=== PATIENT | female | born 1985 | race African-American/Black ===

== ENCOUNTER 2017-03-09 04:59 | Emergency (ER) | payer MEDICAID ==
[2017-03-09] MEDS ORDERED: NAPROXEN 250 MG TABLET PO ONE (05:59)
--- NOTE | 2017-03-09 06:37 | RADIOLOGY REPORT (SQ) ---
EXAM DESCRIPTION: WRIST LEFT 3 VIEWS COMPLETED DATE/TIME: 03/09/2017 6:25 am REASON FOR STUDY: fall COMPARISON: None. NUMBER OF VIEWS: Three views. TECHNIQUE: AP, lateral, and oblique radiographic images acquired of the left wrist. LIMITATIONS: None. FINDINGS: MINERALIZATION: Normal. BONES: No acute fracture or dislocation. No worrisome bone lesions. Normal alignment. SOFT TISSUES: No soft tissue swelling. No foreign body. OTHER: Small ulnar negative variance. IMPRESSION: NEGATIVE STUDY OF THE LEFT WRIST. NO RADIOGRAPHIC EVIDENCE OF ACUTE INJURY. TECHNICAL DOCUMENTATION: JOB ID: [id number] [employer]- All Rights Reserved
--- NOTE | 2017-03-09 07:04 | ER Document Report ---
ED General - General Chief Complaint: Wrist Pain Stated Complaint: FALL/WRIST PAIN Time Seen by Provider: 03/09/17 06:27 Mode of Arrival: Ambulatory Information source: Patient Notes: 31-year-old female presents with complaints of left wrist pain after fall on outstretched hand. Patient notes it was a mechanical fall denies any other injuries TRAVEL OUTSIDE OF THE [place] IN LAST 30 DAYS: No - HPI Onset: Just prior to arrival Onset/Duration: Sudden Quality of pain: Achy Severity: Mild Pain Level: 1 Associated symptoms: Body/muscle aches Exacerbated by: Movement Relieved by: Denies Similar symptoms previously: No Recently seen / treated by doctor: No - Related Data Allergies/Adverse Reactions: No Known Allergies Allergy (Verified 02/11/16 08:42) Past Medical History - Social History Smoking Status: Never Smoker Cigarette use (# per day): No Chew tobacco use (# tins/day): No Smoking Education Provided: No Family History: Reviewed & Not Pertinent Patient has suicidal ideation: No Patient has homicidal ideation: No Renal/ Medical History: Denies: Hx Peritoneal Dialysis Psychiatric Medical History: Denies: Hx Depression Past Surgical History: Reports: Hx Orthopedic Surgery - L hip; tubal ligation - Immunizations Hx Diphtheria, Pertussis, Tetanus Vaccination: No - Unknown Review of Systems - Review of Systems Notes: REVIEW OF SYSTEMS: CONSTITUTIONAL : Denies fever, chills, or sweats. Denies recent illness. EENT: Denies eye, ear, throat, or mouth pain or symptoms. Denies nasal or sinus congestion or discharge. Denies throat, tongue, or mouth swelling or difficulty swallowing. CARDIOVASCULAR: Denies chest pain. Denies palpitations or racing or irregular heart beat. Denies ankle edema. RESPIRATORY: Denies cough, cold, or chest congestion. Denies shortness of breath, difficulty breathing, or wheezing. GASTROINTESTINAL: Denies abdominal pain or distention. Denies nausea, vomiting , or diarrhea. Denies blood in vomitus, stools, or per rectum. Denies black, tarry stools. Denies constipation. GENITOURINARY: Denies difficulty urinating, painful urination, burning, frequency, blood in urine, or discharge. FEMALE GENITOURINARY: Denies vaginal bleeding, heavy or abnormal periods, irregular periods. Denies vaginal discharge or odor. MUSCULOSKELETAL: left wrist pain SKIN: Denies rash, lesions or sores. HEMATOLOGIC : Denies easy bruising or bleeding. LYMPHATIC: Denies swollen, enlarged glands. NEUROLOGICAL: Denies confusion or altered mental status. Denies passing out or loss of consciousness. Denies dizziness or lightheadedness. Denies headache. Denies weakness or paralysis or loss of use of either side. Denies problems with gait or speech. Denies sensory loss, numbness, or tingling. Denies seizures. PSYCHIATRIC: Denies anxiety or stress. Denies depression, suicidal ideation, or homicidal ideation. ALL OTHER SYSTEMS REVIEWED AND NEGATIVE. PHYSICAL EXAMINATION: GENERAL: Well-appearing, well-nourished and in no acute distress. HEAD: Atraumatic, normocephalic. EYES: Pupils equal round extraocular movements intact, conjunctiva are normal. ENT: Nares patent NECK: Normal range of motion LUNGS: No respiratory distress Musculoskeletal: left wrist tenderness on palpation NEUROLOGICAL: Normal speech, normal gait. PSYCH: Normal mood, normal affect. SKIN: Warm, Dry, normal turgor, no rashes or lesions noted. Dictation was performed using [employer] voice recognition software Physical Exam - Vital signs Vitals: Temp Pulse Resp BP Pulse Ox 98.9 F 111 H 20 147/103 H 100 03/09/17 05:01 03/09/17 05:01 03/09/17 05:01 03/09/17 05:01 03/09/17 05:01 Course - Re-evaluation Re-evalutation: 03/09/17 07:03 31-year-old female presenting with wrist injury, x-ray was negative patient otherwise looks well will be placed on cock-up splint for comfort and given follow with her primary care physician for reevaluation in 1 week or to return immediately if there are any other concerns After performing a Medical Screening Examination, I estimate there is LOW risk for INTRACRANIAL HEMORRHAGE, UNSTABLE SPINE FRACTURE, CENTRAL CORD SYNDROME, CAUDA EQUINA, THORACIC AORTIC DISSECTION, PNEUMOTHORAX, PERFORATED BOWEL, RUPTURED ABDOMINAL AORTIC ANEURYSM, ACUTE TENDON RUPTURE, COMPARTMENT SYNDROME, or OPEN FRACTURE, thus I consider the discharge disposition reasonable. Also, there is no evidence or peritonitis, sepsis, or toxicity. I have reevaluated this patient multiple times and no significant life threatening changes are noted. The patient and I have discussed the diagnosis and risks, and we agree with discharging home to follow-up with their primary doctor with the understanding that symptoms and presentations can change. We also discussed returning to the Emergency Department immediately if new or worsening symptoms occur. We have discussed the symptoms which are most concerning (e.g., bloody stool, fever, changing or worsening pain, vomiting) that necessitate immediate return. - Vital Signs Vital signs: Temp Pulse Resp BP Pulse Ox 98.9 F 111 H 20 147/103 H 100 03/09/17 05:01 03/09/17 05:01 03/09/17 05:01 03/09/17 05:01 03/09/17 05:01 - Diagnostic Test Radiology reviewed: Image reviewed, Reports reviewed - no acute abnpormality Discharge - Discharge Clinical Impression: Contusion of bone Wrist injury Qualifiers: Encounter type: initial encounter Laterality: left Qualified Code(s): S69.92XA - Unspecified injury of left wrist, hand and finger(s), initial encounter Condition: Stable Disposition: HOME, SELF-CARE Instructions: Contusion ([facility]) Referrals: DEREK GAREVY DO [Primary Care Provider] - Follow up in 1 week
[2017-03-09 07:06] VITALS: BP 118/75
== END 2017-03-09 07:13 | disposition home or self-care (01) ==
LOC: ER 04:59
DX: S60.212A Contusion of left wrist, initial encounter (principal); M25.532 Pain in left wrist; W19.XXXA Unspecified fall, initial encounter
CPT/HCPCS: 99283; 73110; L3984; L3908

== ENCOUNTER 2019-01-24 11:12 | Emergency (ER) | payer SELFPAY ==
--- NOTE | 2019-01-24 11:30 | ER Document Report ---
ED Medical Screen (RME) - General Chief Complaint: Headache Stated Complaint: HEADACHE Time Seen by Provider: 01/24/19 11:29 Primary Care Provider: DEREK GARVEY DO [Primary Care Provider] - Follow up as needed Mode of Arrival: Ambulatory Information source: Patient Notes: 33-year-old female presented to ED for complaint of headache for about a month. Blood pressure is 167/110 and she does not take her blood pressure medicines as prescribed. She is also diabetic and states she take her insulin as prescribed. Patient is alert oriented respirations regular and unlabored. She has not been to a doctor in a long while. She states she does use cocaine. I have greeted and performed a rapid initial assessment of this patient. A comprehensive ED assessment and evaluation of the patient, analysis of test results and completion of medical decision making process will be conducted by an additional ED providers. Dictation of this chart was performed using voice recognition software; therefore, there may be some unintended grammatical errors. TRAVEL OUTSIDE OF THE [place] IN LAST 30 DAYS: No - Related Data Allergies/Adverse Reactions: No Known Allergies Allergy (Verified 01/24/19 11:13) Past Medical History Renal/ Medical History: Denies: Hx Peritoneal Dialysis Psychiatric Medical History: Denies: Hx Depression Past Surgical History: Reports: Hx Orthopedic Surgery - L hip; tubal ligation - Immunizations Hx Diphtheria, Pertussis, Tetanus Vaccination: No - Unknown Physical Exam - Vital signs Vitals: Temp Pulse Resp BP Pulse Ox 98.1 F 104 H 16 167/110 H 98 01/24/19 11:23 01/24/19 11:23 01/24/19 11:23 01/24/19 11:23 01/24/19 11:23 Course - Vital Signs Vital signs: Temp Pulse Resp BP Pulse Ox 98.1 F 104 H 16 167/110 H 98 01/24/19 11:23 01/24/19 11:23 01/24/19 11:23 01/24/19 11:23 01/24/19 11:23 Doctor's Discharge - Discharge Referrals: DEREK GARVEY DO [Primary Care Provider] - Follow up as needed
[2019-01-24 11:47] LABS: ABSOLUTE BASOPHILS # (AUTO) 0.1 10^3/uL (0.0-0.2); ABSOLUTE EOSINOPHILS # (AUTO) 0.4 10^3/uL (0.0-0.6); ABSOLUTE MONOCYTES (AUTO) 0.8 10^3/uL (0.1-1.4); BASOPHILS % (AUTO) 0.5 % (0-2); EOSINOPHILS % (AUTO) 3.7 % (0-6); HEMATOCRIT 33.7 % (36.0-47.0); HEMOGLOBIN 10.6 g/dL (12.0-15.5); LYMPHOCYTES % (AUTO) 32.3 % (13-45); MEAN CORPUSCULAR HEMOGLOBIN 21.7 pg (27.0-33.4); MEAN CORPUSCULAR HGB CONC 31.3 g/dL (32.0-36.0); MEAN CORPUSCULAR VOLUME 69 fl (80-97); MONOCYTES % (AUTO) 6.8 % (3-13); PLATELET COUNT 394 10^3/uL (150-450); RED BLOOD COUNT 4.88 10^6/uL (3.72-5.28); RED CELL DISTRIBUTION WIDTH 16.5 % (11.5-14.0); SEGMENTED NEUTROPHILS % (AUTO) 56.7 % (42-78); TOTAL CELLS COUNTED % (AUTO) 100 %; WHITE BLOOD COUNT 12.3 10^3/uL (4.0-10.5)
[2019-01-24 12:08] LABS: ALANINE AMINOTRANSFERASE 14 U/L (9-52); ALBUMIN 4.2 g/dL (3.5-5.0); ALKALINE PHOSPHATASE 118 U/L (38-126); ANION GAP 14 (5-19); ASPARTATE AMINO TRANSFERASE 12 U/L (14-36); BILIRUBIN,DIRECT 0.3 mg/dL (0.0-0.4); BILIRUBIN,TOTAL 0.3 mg/dL (0.2-1.3); BLOOD UREA NITROGEN 15 mg/dL (7-20); CALCIUM 9.6 mg/dL (8.4-10.2); CARBON DIOXIDE 27 mmol/L (22-30); CHLORIDE 96 mmol/L (98-107); POTASSIUM 4.5 mmol/L (3.6-5.0); SODIUM 136.8 mmol/L (137-145); TOTAL PROTEIN 8.7 g/dL (6.3-8.2)
[2019-01-24 12:17] LABS: GLUCOSE 405 mg/dL (75-110)
[2019-01-24 12:21] LABS: TROPONIN I < 0.012 ng/mL
[2019-01-24] MEDS ORDERED: KETOROLAC TROMETHAMINE INJ/PF 30 MG/1 ML SDV IV ONE (13:25)
[2019-01-24] MEDS ORDERED: METOCLOPRAMIDE HCL INJ/PF 10 MG/2 ML SDV IV ONE (13:25)
[2019-01-24] MEDS ORDERED: NORMAL SALINE 1000 ML 1,000 ML IV ONE (13:25)
[2019-01-24] MEDS ORDERED: DIPHENHYDRAMINE HCL 50 MG/ML VIAL IV ONE (13:25)
--- NOTE | 2019-01-24 14:19 | RADIOLOGY REPORT (SQ) ---
EXAM DESCRIPTION: CT HEAD WITHOUT COMPLETED DATE/TIME: 01/24/2019 2:07 pm REASON FOR STUDY: headace COMPARISON: 01/21/2016 TECHNIQUE: Axial images acquired through the brain without intravenous contrast. Images reviewed wi th bone, brain and subdural windows. Additional sagittal and coronal reconstructions were generated. Images stored on PACS. All CT scanners at this facility use dose modulation, iterative reconstruction, and/or weight based d osing when appropriate to reduce radiation dose to as low as reasonably achievable (ALARA). [facility]: Dose Right [facility]: CareDose [facility]: Dose Right [facility]: Teradose 4D [facility]: [employer] RADIATION DOSE: CT Rad equipment meets quality standard of care and radiation dose reduction techniq ues were employed. CTDIvol: 53.2 mGy. DLP: 1017 mGy-cm. mGy. LIMITATIONS: None. FINDINGS: VENTRICLES: Normal size and contour. CEREBRUM: No masses. No hemorrhage. No midline shift. No evidence for acute infarction. Normal gra y/white matter differentiation. No areas of low density in the white matter. CEREBELLUM: No masses. No hemorrhage. No alteration of density. No evidence for acute infarction. EXTRAAXIAL SPACES: No fluid collections. No masses. ORBITS AND GLOBE: No intra- or extraconal masses. Normal contour of globe without masses. CALVARIUM: No fracture. PARANASAL SINUSES: Mild mucosal thickening of the bilateral maxillary sinuses and ethmoid air cells. SOFT TISSUES: No mass or hematoma. OTHER: No other significant finding. IMPRESSION: 1. No acute intracranial pathology. No intracranial findings to explain headache. 2. Paranasal sinus disease. EVIDENCE OF ACUTE STROKE: NO. COMMENT: Quality ID # [id number]: Final reports with documentation of one or more dose reduction techniques (e.g., Automated exposure control, adjustment of the mA and/or kV according to patient size, use of iterative reconstruction technique) TECHNICAL DOCUMENTATION: JOB ID: [id number] [employer]- All Rights Reserved Reading location - IP/workstation name: [email or web address]
--- NOTE | 2019-01-24 16:26 | EKG REPORT ---
SEVERITY:- NORMAL ECG - SINUS RHYTHM : Confirmed by: Herve Treviño MD 24-Jan-2019 16:25:45
--- NOTE | 2019-01-24 16:45 | ER Document Report ---
ED Headache - General Chief Complaint: Headache Stated Complaint: HEADACHE Time Seen by Provider: 01/24/19 11:29 Primary Care Provider: DEREK GARVEY DO [NO LOCAL MD] - Follow up as needed Mode of Arrival: Ambulatory Notes: 33-year-old female presents to the ER complaining of a headache times a month. Patient complains about pain behind her eye states she chronically has headaches on and off she is never seen a neurologist. Denies fever chills cough or sore throat. Patient was brought in by EMS was noted to have a mildly elevated blood pressure patient does have a history of high blood sugar and high blood pressure. She denies any extremity numbness tingling weakness complains of severe pain behind her eyes not worse headache of life no thunderclap no rapid onset been continual for the last month. TRAVEL OUTSIDE OF THE [place] IN LAST 30 DAYS: No - Related Data Allergies/Adverse Reactions: No Known Allergies Allergy (Verified 01/24/19 11:13) Past Medical History - General Information source: Patient - Social History Smoking Status: Current Every Day Smoker Chew tobacco use (# tins/day): No Frequency of alcohol use: None Drug Abuse: Cocaine, Prescription drugs Family History: Reviewed & Not Pertinent Patient has suicidal ideation: No Patient has homicidal ideation: No - Past Medical History Cardiac Medical History: Reports: Hx Hypertension Endocrine Medical History: Reports: Hx Diabetes Mellitus Type 2 Renal/ Medical History: Denies: Hx Peritoneal Dialysis Psychiatric Medical History: Denies: Hx Depression Past Surgical History: Reports: Hx Orthopedic Surgery - L hip; tubal ligation - Immunizations Hx Diphtheria, Pertussis, Tetanus Vaccination: No - Unknown Review of Systems - Review of Systems Constitutional: denies: Chills, Fever Cardiovascular: denies: Chest pain Gastrointestinal: denies: Abdominal pain, Nausea, Vomiting Genitourinary: denies: Dysuria, Flank pain Neurological/Psychological: Headaches, Other - Photophobia -: Yes All other systems reviewed and negative Physical Exam - Vital signs Vitals: Temp Pulse Resp BP Pulse Ox 98.1 F 104 H 16 167/110 H 98 01/24/19 11:23 01/24/19 11:23 01/24/19 11:23 01/24/19 11:23 01/24/19 11:23 - Notes Notes: GENERAL_APPEARANCE: well_nourished, alert, cooperative, no_acute_distress, no_obvious_discomfort. VITALS: reviewed, see vital signs table. HEAD: no_swelling\tenderness on the head. EYES: PERRL, EOMI, conjunctiva_clear. NOSE: no_nasal_discharge. MOUTH: (-)decreased moisture. THROAT: no_tonsilar_inflammation, no_airway_obstruction. no_lymphadenopathy NECK: supple, no_neck_tenderness, (-)thyromegaly. BACK: no_back_tenderness. CHEST_WALL: no_chest_tenderness. LUNGS: no_wheezing, no_rales, no_rhonchi, (-)accessory muscle use, good air exchange bilateral. HEART: normal_rate, normal_rhythm, normal_S1, normal_S2, (-)S3, (-)S4, no_murmur, no_rub. ABDOMEN: normal_BS, soft, no_abd_tenderness, (-)guarding, (-)rebound, no_organomegaly, no_abd_masses. EXTREMITIES: good pulses in all_extremities, no_swelling\tenderness in the extremities, no_edema. SKIN: warm, dry, good_color, no_rash. MENTAL_STATUS: speech_clear, oriented_X_3, normal_affect, responds_app ropriately to questions. NEURO: Neg Motor or Sensory Deficits on exam, CN 2-12 intact, DTR 2+ symmetric x 4, No cerbellar signs Course - Re-evaluation Re-evalutation: 01/24/19 16:41 Patient arrives complaining of a headache she has had for a month there is no thunderclap no rapid onset not worse headache of life suspicion for subarachnoid hemorrhage is low CT scan the brain is normal. Patient is given IV fluids pain and nausea medicine the headache is improved. Will discharge patient home on Fioricet Reglan. She is mildly hypertensive initially. She is on HCTZ at home. Her blood sugar is mildly elevated she has a history of this and is on medications. She is to follow-up with her family doctor. 01/24/19 16:43 Laboratory 01/24/19 01/24/19 01/24/19 10:58 10:58 10:58 WBC 12.3 H RBC 4.88 Hgb 10.6 L Hct 33.7 L MCV 69 L MCH 21.7 L MCHC 31.3 L RDW 16.5 H Plt Count 394 Seg Neutrophils % 56.7 Lymphocytes % 32.3 Monocytes % 6.8 Eosinophils % 3.7 Basophils % 0.5 Absolute Neutrophils 7.0 Absolute Lymphocytes 4.0 Absolute Monocytes 0.8 Absolute Eosinophils 0.4 Absolute Basophils 0.1 Sodium 136.8 L Potassium 4.5 Chloride 96 L Carbon Dioxide 27 Anion Gap 14 BUN 15 Creatinine 0.63 Est GFR ( Amer) > 60 Est GFR (Non-Af Amer) > 60 Glucose 405 H* Calcium 9.6 Total Bilirubin 0.3 Direct Bilirubin 0.3 Neonat Total Bilirubin Not Reportable Neonat Direct Bilirubin Not Reportable Neonat Indirect Bili Not Reportable AST 12 L ALT 14 Alkaline Phosphatase 118 CK-MB (CK-2) Troponin I Total Protein 8.7 H Albumin 4.2 Serum HCG, Qual NEGATIVE 01/24/19 10:58 WBC RBC Hgb Hct MCV MCH MCHC RDW Plt Count Seg Neutrophils % Lymphocytes % Monocytes % Eosinophils % Basophils % Absolute Neutrophils Absolute Lymphocytes Absolute Monocytes Absolute Eosinophils Absolute Basophils Sodium Potassium Chloride Carbon Dioxide Anion Gap BUN Creatinine Est GFR ( Amer) Est GFR (Non-Af Amer) Glucose Calcium Total Bilirubin Direct Bilirubin Neonat Total Bilirubin Neonat Direct Bilirubin Neonat Indirect Bili AST ALT Alkaline Phosphatase CK-MB (CK-2) 0.30 Troponin I < 0.012 Total Protein Albumin Serum HCG, Qual Patient is not in DKA there is no anion gap acidosis. - Vital Signs Vital signs: Temp Pulse Resp BP Pulse Ox 98.1 F 104 H 16 167/110 H 98 01/24/19 11:23 01/24/19 11:23 01/24/19 11:23 01/24/19 11:23 01/24/19 11:23 - Laboratory Result Diagrams: 01/24/19 10:58 01/24/19 10:58 Laboratory results interpreted by me: 01/24/19 01/24/19 10:58 10:58 WBC 12.3 H Hgb 10.6 L Hct 33.7 L MCV 69 L MCH 21.7 L MCHC 31.3 L RDW 16.5 H Sodium 136.8 L Chloride 96 L Glucose 405 H* AST 12 L Total Protein 8.7 H - Diagnostic Test Radiology reviewed: Reports reviewed Radiology results interpreted by me: 01/24/19 16:[address] 05/17/19 13:25 IMPRESSION: 1. No acute intracranial pathology. No intracranial findings to explain headache. 2. Paranasal sinus disease. EVIDENCE OF ACUTE STROKE: NO. Discharge - Discharge Clinical Impression: Hyperglycemia Headache Qualifiers: Headache type: other headache syndrome Qualified Code(s): G44.89 - Other headache syndrome Condition: Good Disposition: HOME, SELF-CARE Instructions: Toradol Injection ([facility]), Headache ([facility]) Prescriptions: Butalb/Acetaminophen/Caffeine [Fioricet (50-325-40 mg) Tablet] 1 - 2 tab PO Q4H #20 tab Metoclopramide HCl [Reglan 10 mg Tablet] 1 - 2 tab PO ASDIR PRN #25 tablet PRN Reason: Referrals: DEREK GARVEY DO [NO LOCAL MD] - Follow up as needed
[2019-01-24 16:52] LABS: APPEARANCE,URINE CLOUDY; BILIRUBIN,URINE NEGATIVE (NEGATIVE); COLOR,URINE YELLOW; GLUCOSE, URINE >=500 mg/dL (NEGATIVE); KETONES,URINE TRACE mg/dL (NEGATIVE); LEUKOCYTE ESTERASE,URINE MODERATE (NEGATIVE); NITRITE,URINE POSITIVE (NEGATIVE); PROTEIN,URINE 100 mg/dL (NEGATIVE); UROBILINOGEN,URINE NEGATIVE mg/dL (<2.0)
[2019-01-24 16:57] VITALS: BP 136/88
[2019-01-24 16:59] LABS: URINE AMPHETAMINES SCREEN NEGATIVE; URINE BARBITURATES SCREEN NEGATIVE; URINE BENZODIAZEPINES SCREEN UNCONFIRMED POSITIVE; URINE COCAINE SCREEN UNCONFIRMED POSITIVE; URINE MARIJUANA (THC) SCREEN NEGATIVE; URINE METHADONE SCREEN NEGATIVE; URINE PHENCYCLIDINE SCREEN NEGATIVE
== END 2019-01-24 16:59 | disposition home or self-care (01) ==
LOC: ER 11:12
DX: G44.89 Other headache syndrome (principal); E11.65 Type 2 diabetes mellitus with hyperglycemia; H53.149 Visual discomfort, unspecified; F17.200 Nicotine dependence, unspecified, uncomplicated; I10 Essential (primary) hypertension; Z98.51 Tubal ligation status
CPT/HCPCS: 93005; 99284; 96361; 96374; 96375; 36415; 82553; 84703; 85025; 80053; 81001; 84484; 80307; 70450; 93010; J1200; J1885; J2765; J7030

== ENCOUNTER 2020-01-03 06:41 | Inpatient (IN) | payer MEDICAID ==
[2020-01-03] MEDS ORDERED: FENTANYL CITRATE INJ/PF 100 MCG/2 ML AMPUL IV ONE (06:58)
--- NOTE | 2020-01-03 07:04 | ER Document Report ---
ED General - General Chief Complaint: Nausea/Vomiting Stated Complaint: ABDOMINAL PAIN Time Seen by Provider: 01/03/20 06:46 TRAVEL OUTSIDE OF THE [place] IN LAST 30 DAYS: No - HPI Notes: Chief complaint: Abdominal pain, nausea and vomiting HPI: 34-year-old female with history of NIDDM and hypertension presents with 24- hour history of worsening nausea vomiting and abdominal pain. She started out with nausea and vomiting and this is grown progressively worse along with mid epigastric pain which she now describes as 8/10 intensity. Pain is constant and cramping at this time. No associated diarrhea, fever, chills, dysuria or back pain. No vaginal discharge. Last menses early October. Patient is on no contraception but says she does not believe she is . She has not taken a test. Patient notes that she was treated several years ago elsewhere for abdominal pain and told that she had "early appendicitis" but did not undergo surgery. She denies any past history of any type of surgery. - Related Data Allergies/Adverse Reactions: No Known Allergies Allergy (Verified 01/24/19 11:13) Past Medical History - General Information source: Patient, Emergency Med Personnel, [facility] Records - Social History Smoking Status: Never Smoker Frequency of alcohol use: Rare Drug Abuse: None Lives with: Family Family History: Reviewed & Not Pertinent - Past Medical History Cardiac Medical History: Reports: Hx Hypertension Endocrine Medical History: Reports: Hx Diabetes Mellitus Type 2 Renal/ Medical History: Denies: Hx Peritoneal Dialysis Psychiatric Medical History: Denies: Hx Depression Past Surgical History: Reports: Hx Orthopedic Surgery - L hip; tubal ligation - Immunizations Hx Diphtheria, Pertussis, Tetanus Vaccination: No - Unknown Review of Systems - Review of Systems Notes: Constitutional: Negative for fever. HENT: Negative for sore throat. Eyes: Negative for visual changes. Cardiovascular: Negative for chest pain. Respiratory: Negative for shortness of breath. Gastrointestinal: As per HPI. Genitourinary: As per HPI. Musculoskeletal: Negative for back pain. Skin: Negative for rash. Neurological: Negative for headaches, focal weakness or numbness. 10 point ROS negative except as marked above and in HPI. Physical Exam - Vital signs Vitals: Temp 98.1 F 01/03/20 06:41 - Notes Notes: GENERAL: Female patient appearing approximately stated age very uncomfortable writhing in pain. SKIN: Good turgor no rashes. HEAD: Normocephalic atraumatic. EYES: PERRLA. EOMI. Conjunctivae and sclerae clear. EARS: CANALS AND TMS CLEAR. NOSE: CLEAR. MOUTH: Moist mucosa. Good dentition. No stridor or edema. No drooling. NECK: Supple. No masses or thyromegaly. No adenopathy. Carotids 2+ without bruits. No JVD. BACK: Symmetrical without tenderness. CHEST: Respirations unlabored. Breath sounds clear and symmetrical. HEART: Regular rhythm. No murmur gallop or rub. ABDOMEN: Mild tenderness epigastrium and right lower quadrant. Soft without masses, organomegaly or rebound. Bowel sounds normally active. No bruits. GENITALIA: Deferred. EXTREMITIES: No edema. No calf tenderness. Cap refill less than 1.5 seconds. Dorsalis pedis and posterior tibial pulses 3+ and symmetrical. NEUROLOGICAL: GCS 15. Alert and oriented x3. Fluent speech. Cranial nerves II through XII intact. Sensorimotor and cerebellar normal. Normal tone. PSYCHIATRIC: Anxious affect. Course - Re-evaluation Re-evalutation: 01/03/20 07:58 Patient has received IV normal saline 2 L. I will give her some hydralazine for lowering of her blood pressure. She is also been given some fentanyl for pain. She got Zofran initially but this did not bring her nausea under control so I ashok whitley ordered some Reglan IV. Her sugars elevated low 400s with a normal CO2. Lipase is elevated about 1616. Patient says she has had past episodes of pancreatitis. She says she rarely consumes social alcohol. She denies any known history of gallbladder disease. LFTs are all normal. White count is normal. test is negative. CT scan is pending. 01/03/20 08:00 01/03/20 11:[address] test negative. Pain control with IV fentanyl. Still nauseated and vomiting. Blood sugars coming down with 2 L normal saline IV. Her venous pH and CO2 are normal so she is not in DKA. Blood pressure is responding to IV hydralazine. Urine drug screen positive for cocaine. Patient says that she used cocaine last "a couple days ago". She is going to be admitted to the hospitalist service by Dr. Wilcox on telemetry - Vital Signs Vital signs: Temp Pulse Resp BP Pulse Ox 98.1 F 18 173/109 H 100 01/03/20 06:42 01/03/20 09:31 01/03/20 09:31 01/03/20 09:31 - Laboratory Result Diagrams: 01/03/20 07:00 01/03/20 07:00 Laboratory results interpreted by me: 01/03/20 01/03/20 01/03/20 06:49 07:00 07:00 Hgb 11.1 L Hct 34.4 L MCV 70 L MCH 22.5 L RDW 16.7 H Sodium 133.8 L Chloride 96 L Glucose 427 H* POC Glucose 404 H* Lipase 1616.9 H Urine Protein Urine Glucose (UA) Urine Ketones Urine Blood Leukocyte Esterase Rfl 01/03/20 01/03/20 08:40 08:56 Hgb Hct MCV MCH RDW Sodium Chloride Glucose POC Glucose 379 H Lipase Urine Protein 100 H Urine Glucose (UA) >=500 H Urine Ketones 80 H Urine Blood SMALL H Leukocyte Esterase Rfl MODERATE H - Diagnostic Test Radiology reviewed: Reports reviewed - CT with IV contrast negative per radiologist. - EKG Interpretation by Me Additional EKG results interpreted by me: 01/03/20 09:42 Twelve-lead EKG from 0925 hrs. reviewed contemporaneously by me demonstrates normal sinus rhythm rate 92 with QRS axis 58 degrees and normal intervals with no acute ST/T wave changes. Critical Care Note - Critical Care Note Total time excluding time spent on procedures (mins): 35 - IV hydralazine x2 for hypertensive urgency. Discharge - Discharge Clinical Impression: Cocaine abuse, Hypertensive urgency Acute pancreatitis Qualifiers: Pancreatitis type: unspecified pancreatitis type Acute pancreatitis complication: no infection or necrosis Qualified Code(s): K85.90 - Acute pancreatitis without necrosis or infection, unspecified UTI (urinary tract infection) Qualifiers: Urinary tract infection type: site unspecified Hematuria presence: without hematuria Qualified Code(s): N39.0 - Urinary tract infection, site not specified Condition: Fair Disposition: ADMITTED INPATIENT Admitting Provider: Brenden (Hospitalist) Unit Admitted: Telemetry
[2020-01-03] MEDS ORDERED: HYDRALAZINE HCL INJ/PF 20 MG/1 ML SDV IV ONE ×2 (07:05→07:54)
[2020-01-03 07:23] LABS: ABSOLUTE BASOPHILS # (AUTO) 0.1 10^3/uL (0.0-0.2); ABSOLUTE EOSINOPHILS # (AUTO) 0.2 10^3/uL (0.0-0.6); ABSOLUTE LYMPHOCYTES (AUTO) 1.7 10^3/uL (0.5-4.7); ABSOLUTE MONOCYTES (AUTO) 0.4 10^3/uL (0.1-1.4); ABSOLUTE NEUT (AUTO) 5.4 10^3/uL (1.7-8.2); BASOPHILS % (AUTO) 0.7 % (0-2); EOSINOPHILS % (AUTO) 2.1 % (0-6); HEMATOCRIT 34.4 % (36.0-47.0); HEMOGLOBIN 11.1 g/dL (12.0-15.5); LYMPHOCYTES % (AUTO) 21.5 % (13-45); MEAN CORPUSCULAR HEMOGLOBIN 22.5 pg (27.0-33.4); MEAN CORPUSCULAR HGB CONC 32.4 g/dL (32.0-36.0); MEAN CORPUSCULAR VOLUME 70 fl (80-97); MONOCYTES % (AUTO) 5.5 % (3-13); PLATELET COUNT 371 10^3/uL (150-450); RED BLOOD COUNT 4.94 10^6/uL (3.72-5.28); RED CELL DISTRIBUTION WIDTH 16.7 % (11.5-14.0); SEGMENTED NEUTROPHILS % (AUTO) 70.2 % (42-78); TOTAL CELLS COUNTED % (AUTO) 100 %; WHITE BLOOD COUNT 7.8 10^3/uL (4.0-10.5)
[2020-01-03 07:27] LABS: ALBUMIN 3.9 g/dL (3.5-5.0); ALKALINE PHOSPHATASE 110 U/L (38-126); ANION GAP 13 (5-19); ASPARTATE AMINO TRANSFERASE 16 U/L (14-36); BILIRUBIN,TOTAL 0.4 mg/dL (0.2-1.3); BLOOD UREA NITROGEN 11 mg/dL (7-20); CALCIUM 9.4 mg/dL (8.4-10.2); CARBON DIOXIDE 25 mmol/L (22-30); CHLORIDE 96 mmol/L (98-107); POTASSIUM 4.4 mmol/L (3.6-5.0); TOTAL PROTEIN 7.8 g/dL (6.3-8.2)
[2020-01-03 07:33] LABS: ALCOHOL < 10 mg/dL (NONE DETECTED); GLUCOSE 427 mg/dL (75-110)
[2020-01-03] MEDS ORDERED: METOCLOPRAMIDE HCL INJ/PF 10 MG/2 ML SDV IV ONE (07:57)
[2020-01-03] MEDS ORDERED: PANTOPRAZOLE SODIUM 40 MG VIAL IV ONE (08:25)
[2020-01-03] MEDS: NORMAL SALINE 1000 ML 1,000 ML IV PRN ×4 (08:37→20:25)
[2020-01-03 09:38] LABS: VENOUS BLOOD BASE EXCESS 1.2 mmol/L; VENOUS BLOOD PCO2 47.9 mmHg (35-63); VENOUS BLOOD PH 7.37 (7.30-7.42)
[2020-01-03 09:55] LABS: APPEARANCE,URINE CLOUDY; BILIRUBIN,URINE NEGATIVE (NEGATIVE); COLOR,URINE YELLOW; GLUCOSE, URINE >=500 mg/dL (NEGATIVE); KETONES,URINE 80 mg/dL (NEGATIVE); PROTEIN,URINE 100 mg/dL (NEGATIVE); URINE SPECIFIC GRAVITY 1.033; UROBILINOGEN,URINE NEGATIVE mg/dL (<2.0)
[2020-01-03 10:04] LABS: URINE AMPHETAMINES SCREEN NEGATIVE; URINE BARBITURATES SCREEN NEGATIVE; URINE BENZODIAZEPINES SCREEN NEGATIVE; URINE MARIJUANA (THC) SCREEN NEGATIVE; URINE METHADONE SCREEN NEGATIVE; URINE PHENCYCLIDINE SCREEN NEGATIVE
[2020-01-03 10:05] LABS: URINE COCAINE SCREEN UNCONFIRMED POSITIVE
--- NOTE | 2020-01-03 10:48 | RADIOLOGY REPORT (SQ) ---
EXAM DESCRIPTION: CT ABD/PELVIS WITH IV ONLY IMAGES COMPLETED DATE/TIME: 01/03/2020 10:20 am REASON FOR STUDY: abd pain COMPARISON: None. TECHNIQUE: CT scan of the abdomen and pelvis performed using helical scanning technique with dynamic intravenous contrast injection. No oral contrast. Images reviewed with lung, soft tissue, and bone windows. Reconstructed coronal and sagittal MPR images reviewed. Delayed images for evaluation of the urinary system also acquired. All images stored on PACS. All CT scanners at this facility use dose modulation, iterative reconstruction, and/or weight based d osing when appropriate to reduce radiation dose to as low as reasonably achievable (ALARA). [facility]: Dose Right [facility]: CareDose [facility]: Dose Right [facility]: Teradose 4D [facility]: BFKW CONTRAST TYPE AND DOSE: 94 Omnipaque 350- low osmolar. RENAL FUNCTION: None required. The patient is less than 50 years old. RADIATION DOSE: CT Rad equipment meets quality standard of care and radiation dose reduction techniq ues were employed. CTDIvol: 9.2 - 13.1 mGy. DLP: 1205 mGy-cm.. LIMITATIONS: None. FINDINGS: LOWER CHEST: No significant findings. No nodules or infiltrates. LIVER: Normal size. No masses. No dilated ducts. SPLEEN: Normal size. No focal lesions. PANCREAS: No masses. No significant calcifications. No adjacent inflammation or peripancreatic fluid collections. Pancreatic duct not dilated. GALLBLADDER: No identified stones by CT criteria. No inflammatory changes to suggest cholecystitis. ADRENAL GLANDS: No significant masses or asymmetry. RIGHT KIDNEY AND URETER: No solid masses. No significant calcifications. No hydronephrosis or hyd roureter. LEFT KIDNEY AND URETER: No solid masses. No significant calcifications. No hydronephrosis or hydr oureter. AORTA AND VESSELS: No aneurysm. No dissection. Renal arteries, SMA, celiac without stenosis. RETROPERITONEUM: No retroperitoneal adenopathy, hemorrhage or masses. BOWEL AND PERITONEAL CAVITY: No masses or inflammatory changes. No free fluid or peritoneal masses. APPENDIX: Normal. PELVIS: No mass. No free fluid. Normal bladder. ABDOMINAL WALL: No masses. No hernias. BONES: No significant or acute findings. OTHER: No other significant finding. IMPRESSION: NO SIGNIFICANT OR ACUTE FINDING IN THE ABDOMEN OR PELVIS ON CT SCAN WITH IV CONTRAST. TECHNICAL DOCUMENTATION: JOB ID: [id number] Quality ID # [id number]: Final reports with documentation of one or more dose reduction techniques (e.g., Au tomated exposure control, adjustment of the mA and/or kV according to patient size, use of iterative reconstruction technique) 2010 [employer]- All Rights Reserved Reading location - IP/workstation name: [email or web address]
[2020-01-03] MEDS ORDERED: CEFTRIAXONE INJ 1000 MG VIAL IV ONE (11:01)
[2020-01-03] MEDS ORDERED: MAGNESIUM HYDROXIDE SUSP 30 ML UDCUP PO PRN (12:55)
[2020-01-03] MEDS ORDERED: ALBUTEROL SULFATE 0.083% NEB 2.5 MG/3 ML AMPUL NEB PRN (12:55)
[2020-01-03] MEDS ORDERED: ACETAMINOPHEN 325 MG TABLET PO PRN ×2 (12:55→13:14)
[2020-01-03] MEDS ORDERED: MAG HYDROX/AL HYDROX/SIMETH SUSP 30 ML UDCUP PO PRN (12:55)
[2020-01-03] MEDS ORDERED: DEXTROSE 40% GEL 15 GM TUBE PO PRN ×2 (13:07)
[2020-01-03] MEDS ORDERED: GLUCAGON,HUMAN RECOMB 1 MG INJ IM PRN (13:07)
[2020-01-03] MEDS ORDERED: DEXTROSE 50%-WATER 25 GM/50 ML DISP.SYRIN IV PRN ×2 (13:07)
[2020-01-03] MEDS ORDERED: MORPHINE SULFATE 10 MG/ML INJ IV PRN (13:09)
[2020-01-03] MEDS ORDERED: NICOTINE 7 MG/24 HR PATCH.TD24 TD PRN (13:11)
[2020-01-03] MEDS ORDERED: CLONIDINE 0.1 MG/24 HR PATCH.TDWK TD SCH (14:00)
--- NOTE | 2020-01-03 15:23 | PDOC H&P ---
History of Present Illness Admission Date/PCP: 01/03/20 12:57 Patient complains of: abdominal pain, n/v History of Present Illness: LESLEY POOLE is a 34 year old female with a past medical history of uncontrolled diabetes mellitus, hypertension, obesity, tobacco abuse, and substance abuse who presented to the emergency department today with a complaint of severe abdominal discomfort associated with nausea and vomiting and inability to tolerate p.o. fluids. Evaluation emergency department revealed hypertensive urgency (214/119) and otherwise stable vital signs, anemia (hemoglobin 11.1), glucose 427, and lipase 1616. Urinalysis reveals UTI,Serum EtOH is negative, cocaine positive. Abdominal CT was negative for pertinent findings. Patient was provided IV Rocephin, antiemetics, analgesics, and IV fluids. Patient is referred to the hospitalist service for admission management of the above-stated complaints findings. Past Medical History Cardiac Medical History: Reports: Hypertension Pulmonary Medical History: Reports: None EENT Medical History: Reports: None Neurological Medical History: Reports: None Endocrine Medical History: Reports: Diabetes Mellitus Type 2 Renal/ Medical History: Reports: None Malignancy Medical History: Reports: None GI Medical History: Reports: None Musculoskeltal Medical History: Reports: None Skin Medical History: Reports: None Psychiatric Medical History: Reports: Substance Abuse, Tobacco Dependency Denies: Depression Traumatic Medical History: Reports: None Hematology: Reports: None Infectious Medical History: Reports: None Past Surgical History Past Surgical History: Reports: Orthopedic Surgery - L hip; tubal ligation Social History Information Source: Patient Lives with: Family Smoking Status: Current Some Day Smoker Frequency of Alcohol Use: Social Hx Recreational Drug Use: Yes Drugs: Cocaine Hx Prescription Drug Abuse: No - Advance Directive Resuscitation Status: Full Code Family History Family History: Reviewed & Not Pertinent Parental Family History Reviewed: Yes Children Family History Reviewed: Yes Sibling(s) Family History Reviewed.: Yes Medication/Allergy Home Medications: Cephalexin Monohydrate [Keflex 500 mg Capsule] 500 mg PO BID #6 capsule 02/12/16 Insulin Glargine,Hum.rec.anlog [Lantus Solostar] 12 unit SQ QHS #1 each 02/12/16 Multivitamins W-Iron [Flintstones Chewable Multivit W/Fe Tab] 1 tab PO DAILY #30 tab.chew 02/12/16 Hydrochlorothiazide 25 mg PO QAM #30 tablet 06/24/16 Tramadol HCl 50 mg PO TID PRN #15 tablet 06/24/16 Butalb/Acetaminophen/Caffeine [Fioricet (50-325-40 mg) Tablet] 1 - 2 tab PO Q4H #20 tab 01/24/19 Metoclopramide HCl [Reglan 10 mg Tablet] 1 - 2 tab PO ASDIR PRN #25 tablet 01/24/19 Allergies/Adverse Reactions: No Known Allergies Allergy (Verified 01/24/19 11:13) Review of Systems Constitutional: ABSENT: chills, fever(s), headache(s), weight gain, weight loss Eyes: ABSENT: visual disturbances Ears: ABSENT: hearing changes Cardiovascular: ABSENT: chest pain, dyspnea on exertion, edema, orthropnea, palpitations Respiratory: ABSENT: cough, hemoptysis Gastrointestinal: PRESENT: abdominal pain, nausea, vomiting. ABSENT: constipation, diarrhea, hematemesis, hematochezia Genitourinary: ABSENT: dysuria, hematuria Musculoskeletal: ABSENT: joint swelling Integumentary: ABSENT: rash, wounds Neurological: ABSENT: abnormal gait, abnormal speech, confusion, dizziness, focal weakness, syncope Psychiatric: ABSENT: anxiety, depression, homidical ideation, suicidal ideation Endocrine: ABSENT: cold intolerance, heat intolerance, polydipsia, polyuria Hematologic/Lymphatic: ABSENT: easy bleeding, easy bruising Physical Exam Vital Signs: Temp Pulse Resp BP Pulse Ox 98.1 F 18 175/114 H 100 01/03/20 06:42 01/03/20 12:01 01/03/20 12:01 01/03/20 12:01 Intake & Output 01/02/20 01/03/20 01/04/20 06:59 06:59 06:59 Intake Total 1999 Balance 1999 Weight 88.4 kg General appearance: PRESENT: no acute distress, well-developed, well-nourished Head exam: PRESENT: atraumatic, normocephalic Eye exam: PRESENT: conjunctiva pink, EOMI, PERRLA. ABSENT: scleral icterus Ear exam: PRESENT: normal external ear exam Mouth exam: PRESENT: moist, tongue midline Respiratory exam: PRESENT: clear to auscultation lázaro, symmetrical, unlabored. ABSENT: rales, rhonchi, wheezes Cardiovascular exam: PRESENT: RRR, +S1, +S2. ABSENT: diastolic murmur, rubs, systolic murmur Pulses: PRESENT: normal dorsalis pedis pul Vascular exam: PRESENT: normal capillary refill GI/Abdominal exam: PRESENT: normal bowel sounds, soft, tenderness. ABSENT: distended, guarding, mass, organolmegaly, rebound Rectal exam: PRESENT: deferred Extremities exam: PRESENT: full ROM. ABSENT: calf tenderness, clubbing, pedal edema Neurological exam: PRESENT: alert, awake, oriented to person, oriented to place, oriented to time, oriented to situation, CN II-XII grossly intact. ABSENT: motor sensory deficit Psychiatric exam: PRESENT: appropriate affect, normal mood. ABSENT: homicidal ideation, suicidal ideation Skin exam: PRESENT: dry, intact, warm. ABSENT: cyanosis, rash Results Laboratory Results: 01/03/20 07:00 01/03/20 07:00 01/03/20 01/03/20 01/03/20 07:00 07:00 07:00 WBC 7.8 RBC 4.94 Hgb 11.1 L Hct 34.4 L MCV 70 L MCH 22.5 L MCHC 32.4 RDW 16.7 H Plt Count 371 Seg Neutrophils % 70.2 VBG pH VBG pCO2 VBG HCO3 VBG Base Excess Sodium 133.8 L Potassium 4.4 Chloride 96 L Carbon Dioxide 25 Anion Gap 13 BUN 11 Creatinine 0.70 Est GFR ( Amer) > 60 Glucose 427 H* Calcium 9.4 Total Bilirubin 0.4 AST 16 Alkaline Phosphatase 110 Total Protein 7.8 Albumin 3.9 Lipase 1616.9 H Serum HCG, Qual NEGATIVE Urine Color Urine Appearance Urine pH Ur Specific [place] Urine Protein Urine Glucose (UA) Urine Ketones Urine Blood Urine RBC (Auto) 01/03/20 01/03/20 08:40 08:55 WBC RBC Hgb Hct MCV MCH MCHC RDW Plt Count Seg Neutrophils % VBG pH 7.37 VBG pCO2 47.9 VBG HCO3 27.0 VBG Base Excess 1.2 Sodium Potassium Chloride Carbon Dioxide Anion Gap BUN Creatinine Est GFR ( Amer) Glucose Calcium Total Bilirubin AST Alkaline Phosphatase Total Protein Albumin Lipase Serum HCG, Qual Urine Color YELLOW Urine Appearance CLOUDY Urine pH 7.0 Ur Specific [place] 1.033 Urine Protein 100 H Urine Glucose (UA) >=500 H Urine Ketones 80 H Urine Blood SMALL H Urine RBC (Auto) 1 Impressions: Abdomen/Pelvis CT 01/03/20 00:00 IMPRESSION: NO SIGNIFICANT OR ACUTE FINDING IN THE ABDOMEN OR PELVIS ON CT SCAN WITH IV CONTRAST. Assessment and Plan - Diagnosis (1) Acute pancreatitis Qualifiers: Pancreatitis type: unspecified pancreatitis type Acute pancreatitis compli cation: no infection or necrosis Qualified Code(s): K85.90 - Acute pancreatitis without necrosis or infection, unspecified Is this a current diagnosis for this admission?: Yes Plan: Patient is admitted to the medical floor on continuous cardiac telemetry. She is placed in n.p.o. status. She will be provided aggressive IV fluid resuscitation. Antiemetics and analgesics as needed. Follow-up chemistry. Check lipid panel and A1c with a.m. lab work. (2) Hypertensive urgency Is this a current diagnosis for this admission?: Yes Plan: Blood pressure 214/119 upon initial evaluation the emergency department. Patient confirms that she has a history of hypertension and states that she should be on medications but cannot recall what she takes. Blood pressure at this time is likely elevated related to recent cocaine use. We will avoid beta-blockers. She is provided IV hydralazine as needed for blood pressure control. We will start low-dose clonidine patch until able to take p.o. (3) Diabetes type 2, uncontrolled Qualifiers: Glycemic state: with hyperglycemia Qualified Code(s): E11.65 - Type 2 diabetes mellitus with hyperglycemia Is this a current diagnosis for this admission?: Yes Plan: Holding oral medications while admitted. We will check A1c with a.m. lab work. Currently NPO Accu-Cheks before meals and at bedtime with Humalog for sliding scale coverage. Hypoglycemia protocol in place. Registered dietitian community educator consulted. (4) UTI (urinary tract infection) Qualifiers: Urinary tract infection type: site unspecified Hematuria presence: without hematuria Qualified Code(s): N39.0 - Urinary tract infection, site not specified Is this a current diagnosis for this admission?: Yes Plan: Urine culture pending. Empirically placed on Rocephin (5) Cocaine abuse Is this a current diagnosis for this admission?: Yes Plan: Cessation needs to be counselled. Avoid beta blockers. Discharge planning consulted. - Time Time Spent with patient: 35 or more minutes Medications reviewed and adjusted accordingly: Yes Anticipated discharge: Home - Inpatient Certification Based on my medical assessment, after consideration of the patient's comorbidities, presenting symptoms, or acuity I expect that the services needed warrant INPATIENT care.: Yes I certify that my determination is in accordance with my understanding of Medicare's requirements for reasonable and necessary INPATIENT services [42 CFR 412.3e].: Yes Medical Necessity: Need For IV Fluids, Need for Pain Control, Risk of Compli cation if Not Cared For in Hospital
[2020-01-03] MEDS: HEPARIN SOD (PORCINE) 5,000 UNIT/ML 1 ML VIAL SUBCUT SCH ×2 (15:25→21:43)
[2020-01-03] MEDS: HYDRALAZINE HCL INJ/PF 20 MG/1 ML SDV IV PRN (15:26)
[2020-01-03] MEDS: INSULIN LISPRO 100 UNIT/ML 3 ML VIAL SUBCUT SCH ×2 (17:32→23:00)
[2020-01-03] MEDS: PANTOPRAZOLE SODIUM 40 MG VIAL IV SCH (21:43)
[2020-01-04] MEDS: HYDRALAZINE HCL INJ/PF 20 MG/1 ML SDV IV PRN ×2 (00:01→07:55)
[2020-01-04] MEDS: NORMAL SALINE 1000 ML 1,000 ML IV PRN ×3 (01:53→18:12)
[2020-01-04] MEDS: PROMETHAZINE HCL INJ 25 MG/1 ML VIAL IV PRN (02:21)
[2020-01-04 05:00] LABS: ABSOLUTE BASOPHILS # (AUTO) 0.1 10^3/uL (0.0-0.2); ABSOLUTE LYMPHOCYTES (AUTO) 1.6 10^3/uL (0.5-4.7); ABSOLUTE MONOCYTES (AUTO) 0.5 10^3/uL (0.1-1.4); ABSOLUTE NEUT (AUTO) 6.1 10^3/uL (1.7-8.2); BASOPHILS % (AUTO) 0.9 % (0-2); HEMATOCRIT 31.1 % (36.0-47.0); HEMOGLOBIN 9.9 g/dL (12.0-15.5); LYMPHOCYTES % (AUTO) 19.3 % (13-45); MEAN CORPUSCULAR HGB CONC 31.7 g/dL (32.0-36.0); MEAN CORPUSCULAR VOLUME 69 fl (80-97); MONOCYTES % (AUTO) 6.4 % (3-13); PLATELET COUNT 310 10^3/uL (150-450); RED BLOOD COUNT 4.49 10^6/uL (3.72-5.28); RED CELL DISTRIBUTION WIDTH 16.4 % (11.5-14.0); SEGMENTED NEUTROPHILS % (AUTO) 73.4 % (42-78); TOTAL CELLS COUNTED % (AUTO) 100 %; WHITE BLOOD COUNT 8.3 10^3/uL (4.0-10.5)
[2020-01-04 05:22] LABS: ANION GAP 12 (5-19); BLOOD UREA NITROGEN 16 mg/dL (7-20); CALCIUM 8.1 mg/dL (8.4-10.2); CARBON DIOXIDE 19 mmol/L (22-30); CHLORIDE 107 mmol/L (98-107); CHOLESTEROL 142.82 mg/dL (0-200); GLUCOSE 275 mg/dL (75-110); POTASSIUM 3.9 mmol/L (3.6-5.0); TRIGLYCERIDES 100 mg/dL (<150)
[2020-01-04 05:33] LABS: DIRECT LDL 86 mg/dL (<100)
[2020-01-04] MEDS: HEPARIN SOD (PORCINE) 5,000 UNIT/ML 1 ML VIAL SUBCUT SCH ×3 (06:40→21:54)
[2020-01-04] MEDS: INSULIN LISPRO 100 UNIT/ML 3 ML VIAL SUBCUT SCH ×3 (06:44→18:12)
[2020-01-04] MEDS: PANTOPRAZOLE SODIUM 40 MG VIAL IV SCH ×2 (09:10→21:53)
[2020-01-04] MEDS: CEFTRIAXONE 1 GM/D5W RTU 1 GM/50 ML RTUPB IV SCH (09:11)
--- NOTE | 2020-01-04 10:27 | EKG REPORT ---
SEVERITY:- BORDERLINE ECG - SINUS RHYTHM PROBABLE LEFT ATRIAL ABNORMALITY : Confirmed by: Lyssa Davey 04-Jan-2020 10:27:25
[2020-01-04 11:21] LABS: FREE T3 2.53 pg/mL (2.77-5.27); FREE T4 (FREE THYROXINE) 1.16 ng/dL (0.78-2.19)
--- NOTE | 2020-01-04 12:29 | PDOC PROGRESS REPORT ---
Subjective Progress Note for:: 01/04/20 Subjective:: LESLEY POOLE is a 34 year old female with a past medical history of uncontrolled diabetes mellitus, hypertension, obesity, tobacco abuse, and substance abuse who was admitted 01/03/2020 with acute pancreatitis, hypertensive urgency, and uncontrolled diabetes. She is seen on morning rounds. She is found resting in bed, comfortably, on room air. She reports that she is hungry. She is only utilized Phenergan and morphine x1 since admission. She denies fever, chest pain, palpitations, dyspnea, abdominal pain, nausea and vomiting currently, and diarrhea. She has no questions or concerns at this time. No concerns per nursing. Reason For Visit: ACUTE PANCREATITIS,COCAINE ABUSE,HYPERTENSIVE Physical Exam Vital Signs: Temp Pulse Resp BP Pulse Ox 97.7 F 97 16 108/104 H 100 01/04/20 07:26 01/04/20 07:26 01/04/20 07:26 01/04/20 07:26 01/04/20 07:26 Intake & Output 01/03/20 01/04/20 01/05/20 06:59 06:59 06:59 Intake Total 5050 Balance 5050 Weight 88.4 kg 85 kg General appearance: PRESENT: no acute distress, well-developed, well-nourished Head exam: PRESENT: atraumatic, normocephalic Eye exam: PRESENT: conjunctiva pink, EOMI, PERRLA. ABSENT: scleral icterus Mouth exam: PRESENT: moist, tongue midline Neck exam: ABSENT: carotid bruit, JVD, lymphadenopathy, thyromegaly Respiratory exam: PRESENT: clear to auscultation lázaro, symmetrical, unlabored Cardiovascular exam: PRESENT: RRR. ABSENT: diastolic murmur, rubs, systolic murmur Pulses: PRESENT: normal dorsalis pedis pul Vascular exam: PRESENT: normal capillary refill GI/Abdominal exam: PRESENT: normal bowel sounds, soft. ABSENT: distended, guarding, mass, organolmegaly, rebound, tenderness Rectal exam: PRESENT: deferred Extremities exam: PRESENT: full ROM. ABSENT: calf tenderness, clubbing, pedal edema Neurological exam: PRESENT: alert, awake, oriented to person, oriented to place, oriented to time, oriented to situation, CN II-XII grossly intact. ABSENT: motor sensory deficit Psychiatric exam: PRESENT: appropriate affect, normal mood. ABSENT: homicidal ideation, suicidal ideation Skin exam: PRESENT: dry, intact, warm. ABSENT: cyanosis, rash Results Laboratory Results: 01/04/20 04:17 01/04/20 04:17 01/04/20 01/04/20 01/04/20 04:17 04:17 04:17 WBC 8.3 RBC 4.49 Hgb 9.9 L Hct 31.1 L MCV 69 L MCH 22.0 L MCHC 31.7 L RDW 16.4 H Plt Count 310 Seg Neutrophils % 73.4 Sodium 137.5 Potassium 3.9 Chloride 107 Carbon Dioxide 19 L Anion Gap 12 BUN 16 Creatinine 0.65 Est GFR ( Amer) > 60 Glucose 275 H Calcium 8.1 L Triglycerides 100 Cholesterol 142.82 LDL Cholesterol Direct 86 VLDL Cholesterol 20.0 HDL Cholesterol 47 Lipase 328.4 H TSH 0.27 L Free T4 Free T3 pg/mL 01/04/20 04:17 WBC RBC Hgb Hct MCV MCH MCHC RDW Plt Count Seg Neutrophils % Sodium Potassium Chloride Carbon Dioxide Anion Gap BUN Creatinine Est GFR ( Amer) Glucose Calcium Triglycerides Cholesterol LDL Cholesterol Direct VLDL Cholesterol HDL Cholesterol Lipase TSH Free T4 1.16 Free T3 pg/mL 2.53 L Impressions: Abdomen/Pelvis CT 01/03/20 00:00 IMPRESSION: NO SIGNIFICANT OR ACUTE FINDING IN THE ABDOMEN OR PELVIS ON CT SCAN WITH IV CONTRAST. Assessment and Plan - Diagnosis (1) Acute pancreatitis Qualifiers: Pancreatitis type: unspecified pancreatitis type Acute pancreatitis complication: no infection or necrosis Qualified Code(s): K85.90 - Acute pancreatitis without necrosis or infection, unspecified Is this a current diagnosis for this admission?: Yes Plan: Improved. Lipase 1616-> 328 Patient is admitted to the medical floor on continuous cardiac telemetry. Advance to clear liquid diet. She will be provided aggressive IV fluid resuscitation. Antiemetics and analgesics as needed. Follow-up chemistry. (2) Hypertensive urgency Is this a current diagnosis for this admission?: Yes Plan: Resolved; Blood pressures now well controlled. Blood pressure 214/119 upon initial evaluation the emergency department. Patient confirms that she has a history of hypertension and states that she should be on medications but cannot recall what she takes. Blood pressure at this time is likely elevated related to recent cocaine use. We will avoid beta-blockers. She is provided IV hydralazine as needed for blood pressure control. Continue clonidine patch; transition to p.o. medications if tolerates p.o. intake today (3) Diabetes type 2, uncontrolled Qualifiers: Glycemic state: with hyperglycemia Qualified Code(s): E11.65 - Type 2 diabetes mellitus with hyperglycemia Is this a current diagnosis for this admission?: Yes Plan: A1C > 14% Holding oral medications while admitted. Advanced to clear/diabetic diet. Start Lantus 10 units daily. Accu-Cheks before meals and at bedtime with Humalog for sliding scale coverage. Hypoglycemia protocol in place. Registered dietitian unit educator consulted. (4) UTI (urinary tract infection) Qualifiers: Urinary tract infection type: site unspecified Hematuria presence: without hematuria Qualified Code(s): N39.0 - Urinary tract infection, site not specified Is this a current diagnosis for this admission?: Yes Plan: Urine culture pending. Empirically placed on Rocephin (5) Cocaine abuse Is this a current diagnosis for this admission?: Yes Plan: Cessation needs to be counselled. Avoid beta blockers. Discharge planning consulted. - Time Time Spent with patient: 25-34 minutes Medications reviewed and adjusted accordingly: Yes Anticipated discharge: Home Within: within 24 hours
[2020-01-04] MEDS: INSULIN GLARGINE,HUM.REC.ANLOG 1,000 UNIT/10 ML VIAL SUBCUT SCH (21:53)
[2020-01-05] MEDS: INSULIN LISPRO 100 UNIT/ML 3 ML VIAL SUBCUT SCH ×4 (00:42→17:23)
[2020-01-05] MEDS: NORMAL SALINE 1000 ML 1,000 ML IV PRN (03:32)
[2020-01-05 05:28] LABS: HEMATOCRIT 29.5 % (36.0-47.0); HEMOGLOBIN 9.5 g/dL (12.0-15.5); MEAN CORPUSCULAR HEMOGLOBIN 22.2 pg (27.0-33.4); MEAN CORPUSCULAR HGB CONC 32.3 g/dL (32.0-36.0); MEAN CORPUSCULAR VOLUME 69 fl (80-97); PLATELET COUNT 254 10^3/uL (150-450); RED BLOOD COUNT 4.29 10^6/uL (3.72-5.28); RED CELL DISTRIBUTION WIDTH 15.9 % (11.5-14.0); WHITE BLOOD COUNT 7.4 10^3/uL (4.0-10.5)
[2020-01-05 05:53] LABS: ANION GAP 6 (5-19); BLOOD UREA NITROGEN 15 mg/dL (7-20); CALCIUM 7.8 mg/dL (8.4-10.2); CARBON DIOXIDE 22 mmol/L (22-30); CHLORIDE 105 mmol/L (98-107); GLUCOSE 201 mg/dL (75-110); POTASSIUM 3.5 mmol/L (3.6-5.0)
[2020-01-05] MEDS: HEPARIN SOD (PORCINE) 5,000 UNIT/ML 1 ML VIAL SUBCUT SCH ×3 (06:44→22:21)
[2020-01-05] MEDS: OXYCODONE-ACETAMINOPHEN 5-325 MG TABLET PO PRN (06:52)
[2020-01-05] MEDS: HYDRALAZINE HCL INJ/PF 20 MG/1 ML SDV IV PRN (10:13)
[2020-01-05] MEDS ORDERED: MORPHINE SULFATE 10 MG/ML INJ ONE (10:24)
[2020-01-05] MEDS: PANTOPRAZOLE SODIUM 40 MG VIAL IV SCH ×2 (10:33→22:21)
[2020-01-05] MEDS: CEFTRIAXONE 1 GM/D5W RTU 1 GM/50 ML RTUPB IV SCH (10:34)
[2020-01-05] MEDS ORDERED: MORPHINE SULFATE 10 MG/ML INJ IV ONE (11:00)
[2020-01-05] MEDS: ONDANSETRON HCL INJ/PF 4 MG/2 ML SDV IV PRN (11:20)
[2020-01-05] MEDS ORDERED: HYDRALAZINE HCL INJ/PF 20 MG/1 ML SDV IV ONE ×2 (13:00→16:45)
[2020-01-05] MEDS ORDERED: HYDRALAZINE HCL INJ/PF 20 MG/1 ML SDV IV PRN (16:47)
--- NOTE | 2020-01-05 16:49 | PDOC PROGRESS REPORT ---
Subjective Progress Note for:: 01/05/20 Subjective:: Seen laying quietly in bed. She has no complaints. Reason For Visit: ACUTE PANCREATITIS,COCAINE ABUSE,HYPERTENSIVE Physical Exam Vital Signs: Temp Pulse Resp BP Pulse Ox 97.9 F 87 19 188/118 H 100 01/05/20 11:26 01/05/20 11:26 01/05/20 11:26 01/05/20 12:45 01/05/20 11:26 Intake & Output 01/04/20 01/05/20 01/06/20 06:59 06:59 06:59 Intake Total 5050 3180 Balance 5050 3180 Weight 85 kg 88 kg General appearance: PRESENT: no acute distress, well-developed, well-nourished Head exam: PRESENT: atraumatic, normocephalic Eye exam: PRESENT: conjunctiva pink, EOMI, PERRLA. ABSENT: scleral icterus Ear exam: PRESENT: normal external ear exam Mouth exam: PRESENT: moist, tongue midline Neck exam: ABSENT: carotid bruit, JVD, lymphadenopathy, thyromegaly Respiratory exam: PRESENT: clear to auscultation lázaro. ABSENT: rales, rhonchi, wheezes Cardiovascular exam: PRESENT: RRR. ABSENT: diastolic murmur, rubs, systolic murmur Pulses: PRESENT: normal dorsalis pedis pul Vascular exam: PRESENT: normal capillary refill GI/Abdominal exam: PRESENT: normal bowel sounds, soft. ABSENT: distended, guarding, mass, organolmegaly, rebound, tenderness Rectal exam: PRESENT: deferred Extremities exam: PRESENT: full ROM. ABSENT: calf tenderness, clubbing, pedal edema Neurological exam: PRESENT: alert, awake, oriented to person, oriented to place, oriented to time, oriented to situation, CN II-XII grossly intact. ABSENT: motor sensory deficit Psychiatric exam: PRESENT: appropriate affect, normal mood. ABSENT: homicidal ideation, suicidal ideation Skin exam: PRESENT: dry, intact, warm. ABSENT: cyanosis, rash Results Laboratory Results: 01/05/20 05:07 01/05/20 05:07 01/05/20 01/05/20 05:07 05:07 WBC 7.4 RBC 4.29 Hgb 9.5 L Hct 29.5 L MCV 69 L MCH 22.2 L MCHC 32.3 RDW 15.9 H Plt Count 254 Sodium 132.5 L Potassium 3.5 L Chloride 105 Carbon Dioxide 22 Anion Gap 6 BUN 15 Creatinine 0.62 Est GFR ( Amer) > 60 Glucose 201 H Calcium 7.8 L 01/03/20 08:40 Clean Catch Midstream Urine Culture - Final Escherichia Coli Impressions: Abdomen/Pelvis CT 01/03/20 00:00 IMPRESSION: NO SIGNIFICANT OR ACUTE FINDING IN THE ABDOMEN OR PELVIS ON CT SCAN WITH IV CONTRAST. Assessment and Plan - Diagnosis (1) Acute pancreatitis Qualifiers: Pancreatitis type: unspecified pancreatitis type Acute pancreatitis complication: no infection or necrosis Qualified Code(s): K85.90 - Acute pancreatitis without necrosis or infection, unspecified Is this a current diagnosis for this admission?: Yes (2) Cocaine abuse Is this a current diagnosis for this admission?: Yes (3) Diabetes type 2, uncontrolled Qualifiers: Glycemic state: with hyperglycemia Qualified Code(s): E11.65 - Type 2 diabetes mellitus with hyperglycemia Is this a current diagnosis for this admission?: Yes (4) Hypertensive urgency Is this a current diagnosis for this admission?: Yes (5) UTI (urinary tract infection) Qualifiers: Urinary tract infection type: site unspecified Hematuria presence: without hematuria Qualified Code(s): N39.0 - Urinary tract infection, site not specified Is this a current diagnosis for this admission?: Yes Plan: Urine culture yield E.Coli. Will dc Ceftriaxone and start Amoxicillin x 3days
[2020-01-05] MEDS: CLONIDINE HCL 0.2 MG TABLET PO SCH ×2 (17:23→21:41)
[2020-01-05] MEDS: INSULIN GLARGINE,HUM.REC.ANLOG 1,000 UNIT/10 ML VIAL SUBCUT SCH (22:20)
[2020-01-06] MEDS: INSULIN LISPRO 100 UNIT/ML 3 ML VIAL SUBCUT SCH ×5 (00:25→22:11)
[2020-01-06] MEDS: CLONIDINE HCL 0.2 MG TABLET PO SCH ×2 (06:31→16:09)
[2020-01-06] MEDS: HEPARIN SOD (PORCINE) 5,000 UNIT/ML 1 ML VIAL SUBCUT SCH ×3 (06:41→22:16)
[2020-01-06] MEDS: AMOXICILLIN TRIHYD 250 MG CAPSULE PO SCH ×3 (09:45→22:15)
[2020-01-06] MEDS: PANTOPRAZOLE SODIUM 40 MG VIAL IV SCH (09:45)
[2020-01-06] MEDS: OXYCODONE-ACETAMINOPHEN 5-325 MG TABLET PO PRN (13:38)
[2020-01-06] MEDS: ONDANSETRON HCL INJ/PF 4 MG/2 ML SDV IV PRN (13:38)
--- NOTE | 2020-01-06 14:41 | PDOC PROGRESS REPORT ---
Subjective Progress Note for:: 01/06/20 Subjective:: Seen laying quietly in bed. She has no complaints. Feels much better today Reason For Visit: ACUTE PANCREATITIS,COCAINE ABUSE,HYPERTENSIVE Physical Exam Vital Signs: Temp Pulse Resp BP Pulse Ox 98.3 F 89 16 105/62 100 01/06/20 07:53 01/06/20 14:00 01/06/20 07:53 01/06/20 07:53 01/06/20 07:53 Intake & Output 01/05/20 01/06/20 01/07/20 06:59 06:59 06:59 Intake Total 3180 800 360 Balance 3180 800 360 Weight 88 kg 87.9 kg 87.9 kg General appearance: PRESENT: no acute distress, well-developed, well-nourished Head exam: PRESENT: atraumatic, normocephalic Eye exam: PRESENT: conjunctiva pink, EOMI. ABSENT: scleral icterus Mouth exam: PRESENT: tongue midline Neck exam: ABSENT: carotid bruit, JVD, lymphadenopathy, thyromegaly Respiratory exam: PRESENT: clear to auscultation lázaro, unlabored. ABSENT: rales, rhonchi, wheezes Cardiovascular exam: PRESENT: RRR, +S1, +S2. ABSENT: diastolic murmur, rubs, systolic murmur Pulses: PRESENT: normal dorsalis pedis pul Vascular exam: PRESENT: normal capillary refill GI/Abdominal exam: PRESENT: normal bowel sounds, soft. ABSENT: distended, guarding, mass, organolmegaly, rebound, tenderness Rectal exam: PRESENT: deferred Extremities exam: PRESENT: full ROM. ABSENT: calf tenderness, clubbing, pedal edema Neurological exam: PRESENT: alert, awake, oriented to person, oriented to place, oriented to time, oriented to situation, CN II-XII grossly intact. ABSENT: motor sensory deficit Psychiatric exam: PRESENT: appropriate affect, normal mood. ABSENT: homicidal ideation, suicidal ideation Skin exam: PRESENT: dry, intact, warm. ABSENT: cyanosis, rash Results Laboratory Results: 01/05/20 05:07 01/05/20 05:07 01/05/20 05:07 Lipase 337.3 H Impressions: Abdomen/Pelvis CT 01/03/20 00:00 IMPRESSION: NO SIGNIFICANT OR ACUTE FINDING IN THE ABDOMEN OR PELVIS ON CT SCAN WITH IV CONTRAST. Assessment and Plan - Diagnosis (1) Acute pancreatitis Qualifiers: Pancreatitis type: unspecified pancreatitis type Acute pancreatitis complication: no infection or necrosis Qualified Code(s): K85.90 - Acute pancreatitis without necrosis or infection, unspecified Is this a current diagnosis for this admission?: Yes Plan: Improved. Lipase 1616-> 328 Patient is admitted to the medical floor on continuous cardiac telemetry. Advance to clear liquid diet. She will be provided aggressive IV fluid resuscitation. Antiemetics and analgesics as needed. Follow-up chemistry. 01/05 Resolved (2) Cocaine abuse Is this a current diagnosis for this admission?: Yes Plan: Cessation counselled. (3) Diabetes type 2, uncontrolled Qualifiers: Glycemic state: with hyperglycemia Qualified Code(s): E11.65 - Type 2 diabetes mellitus with hyperglycemia Is this a current diagnosis for this admission?: Yes Plan: A1C > 14% Holding oral medications while admitted. Advanced to clear/diabetic diet. Start Lantus 10 units daily. Accu-Cheks before meals and at bedtime with Humalog for sliding scale coverage. Hypoglycemia protocol in place. Registered dietitian transport coordinator consulted. (4) Hypertensive urgency Is this a current diagnosis for this admission?: Yes Plan: Resolved; Blood pressures now well controlled. Blood pressure 214/119 upon initial evaluation the emergency department. Patient confirms that she has a history of hypertension and states that she should be on medications but cannot recall what she takes. Blood pressure at this time is likely elevated related to recent cocaine use. We will avoid beta-blockers. She is provided IV hydralazine as needed for blood pressure control. Continue clonidine patch; transition to p.o. medications if tolerates p.o. intake today 01/05 will DC Clonidine (5) UTI (urinary tract infection) Qualifiers: Urinary tract infection type: site unspecified Hematuria presence: without hematuria Qualified Code(s): N39.0 - Urinary tract infection, site not specified Is this a current diagnosis for this admission?: Yes Plan: Urine culture yield E.Coli. Cont Amoxicillin Day 2 of 3days - Time Time Spent with patient: 15-24 minutes Anticipated discharge: Home Within: within 24 hours
[2020-01-06] MEDS: PROMETHAZINE HCL INJ 25 MG/1 ML VIAL IV PRN (16:40)
[2020-01-06] MEDS: MORPHINE SULFATE 10 MG/ML INJ IV PRN (20:44)
[2020-01-06] MEDS: INSULIN GLARGINE,HUM.REC.ANLOG 1,000 UNIT/10 ML VIAL SUBCUT SCH (22:16)
[2020-01-07] MEDS: HEPARIN SOD (PORCINE) 5,000 UNIT/ML 1 ML VIAL SUBCUT SCH ×2 (06:13→13:32)
[2020-01-07] MEDS: MORPHINE SULFATE 10 MG/ML INJ IV PRN (06:13)
[2020-01-07] MEDS: AMOXICILLIN TRIHYD 250 MG CAPSULE PO SCH ×2 (06:14→13:31)
[2020-01-07] MEDS ORDERED: ONDANSETRON HCL INJ/PF 4 MG/2 ML SDV IV PRN (08:30)
[2020-01-07] MEDS ORDERED: PROMETHAZINE HCL INJ 25 MG/1 ML VIAL IV PRN (08:30)
[2020-01-07] MEDS ORDERED: LISINOPRIL 10 MG TABLET PO SCH (10:00)
[2020-01-07] MEDS: INSULIN LISPRO 100 UNIT/ML 3 ML VIAL SUBCUT SCH ×3 (10:18→16:43)
--- NOTE | 2020-01-07 16:39 | PDOC DISCHARGE SUMMARY ---
Impression - Admit/DC Date/PCP Admission Date/Primary Care Provider: 01/03/20 12:57 Discharge Date: 01/07/20 - Discharge Diagnosis (1) Acute pancreatitis Is this a current diagnosis for this admission?: Yes (2) Cocaine abuse Is this a current diagnosis for this admission?: Yes (3) Diabetes type 2, uncontrolled Is this a current diagnosis for this admission?: Yes (4) Hypertensive urgency Is this a current diagnosis for this admission?: Yes (5) UTI (urinary tract infection) Is this a current diagnosis for this admission?: Yes - Additional Information Resuscitation Status: Full Code Discharge Diet: Diabetic Discharge Activity: Activity As Tolerated Home Medications: Insulin Glargine,Hum.rec.anlog [Lantus Insulin 100 Unit/1 ml 10 ml] 15 unit SUBCUT BID 01/05/20 Lisinopril [Prinivil 5 mg Tablet] 5 mg PO Q12 01/05/20 Metoprolol Tartrate [Lopressor 50 mg Tablet] 50 mg PO Q12 01/05/20 Nicotine [Nicoderm 7 mg/24 Hr Transdermal Patch] 1 each TD DAILYP PRN patch.td24 01/07/20 Additional Information: Patient needs follow up with PCP for medication management and adjustment and need to reinforce judicious abstaining from illegal drug use as well as medication compliance History of Present Illiness History of Present Illness: LESLEY POOLE is a 34 year old female Patient presents emergency room complains of severe abdominal pain associated with nausea and vomiting. She was found to have acute pancreatitis. She was also found in severe hypertensive urgency with blood pressure of 214/119. Patient blood sugar was also found to be elevated and her lipase was 1616. Hospital Course Hospital Course: Was monitored on medical floor. She was initially made n.p.o. She was treated with an anti-hypertensives parenterally. Her lipase was monitored and is gradually decreased although still elevated at this time. Blood pressure has been much better controlled also. Patient was advised on the need to abstain from substance abuse as she admitted to cocaine use and a toxicology screen was also positive for cocaine. Patient will need follow-up with her PCP for further evaluation of her blood pressure and adjustment of her medications as needed. Her blood pressure was likely out of control due to the cocaine. Hemoglobin A1c was also found to be 14. Patient was advised on need to be compliant with her insulin as well as a diet. She will need close monitor and follow-up as outpatient. She was also treated for urinary tract infection, E. coli for which she received ceftriaxone IV and was then treated with amoxicillin to complete her course of treatment. Physical Exam Vital Signs: Temp Pulse Resp BP Pulse Ox 98.7 F 76 16 119/85 100 01/07/20 11:04 01/07/20 14:00 01/07/20 11:04 01/07/20 11:04 01/07/20 11:04 Intake & Output 01/06/20 01/07/20 01/08/20 06:59 06:59 06:59 Intake Total 800 920 120 Balance 800 920 120 Weight 87.9 kg 90.7 kg General appearance: PRESENT: no acute distress, well-developed, well-nourished Head exam: PRESENT: atraumatic, normocephalic Eye exam: PRESENT: conjunctiva pink, EOMI, PERRLA. ABSENT: scleral icterus Ear exam: PRESENT: normal external ear exam Mouth exam: PRESENT: moist, tongue midline Neck exam: ABSENT: carotid bruit, JVD, lymphadenopathy, thyromegaly Respiratory exam: PRESENT: clear to auscultation lázaro. ABSENT: rales, rhonchi, wheezes Cardiovascular exam: PRESENT: RRR, +S1, +S2. ABSENT: diastolic murmur, rubs, systolic murmur Pulses: PRESENT: normal dorsalis pedis pul Vascular exam: PRESENT: normal capillary refill GI/Abdominal exam: PRESENT: normal bowel sounds, soft. ABSENT: distended, guarding, mass, organolmegaly, rebound, tenderness Rectal exam: PRESENT: deferred Extremities exam: PRESENT: full ROM. ABSENT: calf tenderness, clubbing, pedal edema Neurological exam: PRESENT: alert, awake, oriented to person, oriented to place, oriented to time, oriented to situation, CN II-XII grossly intact. ABSENT: motor sensory deficit Psychiatric exam: PRESENT: appropriate affect, normal mood. ABSENT: homicidal ideation, suicidal ideation Skin exam: PRESENT: dry, intact, warm. ABSENT: cyanosis, rash Results Laboratory Results: WBC 7.4 10^3/uL (4.0-10.5) 01/05/20 05:07 RBC 4.29 10^6/uL (3.72-5.28) 01/05/20 05:07 Hgb 9.5 g/dL (12.0-15.5) L 01/05/20 05:07 Hct 29.5 % (36.0-47.0) L 01/05/20 05:07 MCV 69 fl (80-97) L 01/05/20 05:07 MCH 22.2 pg (27.0-33.4) L 01/05/20 05:07 MCHC 32.3 g/dL (32.0-36.0) 01/05/20 05:07 RDW 15.9 % (11.5-14.0) H 01/05/20 05:07 Plt Count 254 10^3/uL (150-450) 01/05/20 05:07 Lymph % (Auto) 19.3 % (13-45) 01/04/20 04:17 [place] % (Auto) 6.4 % (3-13) 01/04/20 04:17 Eos % (Auto) 0.0 % (0-6) 01/04/20 04:17 Baso % (Auto) 0.9 % (0-2) 01/04/20 04:17 Absolute Neuts (auto) 6.1 10^3/uL (1.7-8.2) 01/04/20 04:17 Absolute Lymphs (auto) 1.6 10^3/uL (0.5-4.7) 01/04/20 04:17 Absolute Monos (auto) 0.5 10^3/uL (0.1-1.4) 01/04/20 04:17 Absolute Eos (auto) 0.0 10^3/uL (0.0-0.6) 01/04/20 04:17 Absolute Basos (auto) 0.1 10^3/uL (0.0-0.2) 01/04/20 04:17 Seg Neutrophils % 73.4 % (42-78) 01/04/20 04:17 VBG pH 7.37 (7.30-7.42) 01/03/20 08:55 VBG pCO2 47.9 mmHg (35-63) 01/03/20 08:55 VBG HCO3 27.0 mmol/L (20-32) 01/03/20 08:55 VBG Base Excess 1.2 mmol/L 01/03/20 08:55 Sodium 132.5 mmol/L (137-145) L 01/05/20 05:07 Potassium 3.5 mmol/L (3.6-5.0) L 01/05/20 05:07 Chloride 105 mmol/L (98-107) 01/05/20 05:07 Carbon Dioxide 22 mmol/L (22-30) 01/05/20 05:07 Anion Gap 6 (5-19) 01/05/20 05:07 BUN 15 mg/dL (7-20) 01/05/20 05:07 Creatinine 0.62 mg/dL (0.52-1.25) 01/05/20 05:07 Est GFR ( Amer) > 60 (>60) 01/05/20 05:07 Est GFR (MDRD) Non-Af > 60 (>60) 01/05/20 05:07 Glucose 201 mg/dL (75-110) H 01/05/20 05:07 POC Glucose 193 mg/dL (70-110) H 01/07/20 15:55 Hemoglobin A1c % > 14.0 % (4.7-6.0) H 01/04/20 04:17 Calcium 7.8 mg/dL (8.4-10.2) L 01/05/20 05:07 Total Bilirubin 0.4 mg/dL (0.2-1.3) 01/03/20 07:00 Direct Bilirubin 0.0 mg/dL (0.0-0.4) 01/03/20 07:00 Neonat Total Bilirubin Not Reportable 01/03/20 07:00 Neonat Direct Bilirubin Not Reportable 01/03/20 07:00 Neonat Indirect Bili Not Reportable 01/03/20 07:00 AST 16 U/L (14-36) 01/03/20 07:00 ALT 11 U/L (<35) 01/03/20 07:00 Alkaline Phosphatase 110 U/L (38-126) 01/03/20 07:00 Total Protein 7.8 g/dL (6.3-8.2) 01/03/20 07:00 Albumin 3.9 g/dL (3.5-5.0) 01/03/20 07:00 Triglycerides 100 mg/dL (<150) 01/04/20 04:17 Cholesterol 142.82 mg/dL (0-200) 01/04/20 04:17 LDL Cholesterol Direct 86 mg/dL (<100) 01/04/20 04:17 VLDL Cholesterol 20.0 mg/dL (10-31) 01/04/20 04:17 HDL Cholesterol 47 mg/dL (>40) 01/04/20 04:17 Lipase 337.3 U/L (23-300) H 01/05/20 05:07 TSH 0.27 uIU/mL (0.47-4.68) L 01/04/20 04:17 Free T4 1.16 ng/dL (0.78-2.19) 01/04/20 04:17 Free T3 pg/mL 2.53 pg/mL (2.77-5.27) L 01/04/20 04:17 Serum HCG, Qual NEGATIVE (NEGATIVE) 01/03/20 07:00 Urine Color YELLOW 01/03/20 08:40 Urine Appearance CLOUDY 01/03/20 08:40 Urine pH 7.0 (5.0-9.0) 01/03/20 08:40 Ur Specific [place] 1.033 01/03/20 08:40 Urine Protein 100 mg/dL (NEGATIVE) H 01/03/20 08:40 Urine Glucose (UA) >=500 mg/dL (NEGATIVE) H 01/03/20 08:40 Urine Ketones 80 mg/dL (NEGATIVE) H 01/03/20 08:40 Urine Blood SMALL (NEGATIVE) H 01/03/20 08:40 Urine Nitrite (Reflex) NEGATIVE (NEGATIVE) 01/03/20 08:40 Urine Bilirubin NEGATIVE (NEGATIVE) 01/03/20 08:40 Urine Urobilinogen NEGATIVE mg/dL (<2.0) 01/03/20 08:40 Leukocyte Esterase Rfl MODERATE (NEGATIVE) H 01/03/20 08:40 Urine RBC (Auto) 1 /HPF 01/03/20 08:40 Urine WBC (Reflex) > 182 /HPF 01/03/20 08:40 Urine Mucus (Auto) OCC /LPF 01/03/20 08:40 Urine Ascorbic Acid NEGATIVE (NEGATIVE) 01/03/20 08:40 Urine Opiates Screen NEGATIVE 01/03/20 08:40 Urine Methadone Screen NEGATIVE 01/03/20 08:40 Ur Barbiturates Screen NEGATIVE 01/03/20 08:40 Ur Phencyclidine Scrn NEGATIVE 01/03/20 08:40 Ur Amphetamines Screen NEGATIVE 01/03/20 08:40 U Benzodiazepines Scrn NEGATIVE 01/03/20 08:40 Urine Cocaine Screen UNCONFIRMED POSITIVE 01/03/20 08:40 U Marijuana (THC) Screen NEGATIVE 01/03/20 08:40 Serum Alcohol < 10 mg/dL (NONE DETECTED) 01/03/20 07:00 Impressions: Abdomen/Pelvis CT 01/03/20 00:00 IMPRESSION: NO SIGNIFICANT OR ACUTE FINDING IN THE ABDOMEN OR PELVIS ON CT SCAN WITH IV CONTRAST. Plan Health Concerns: Medication noncompliance Substance abuse Questionable understanding of disease Time Spent: Greater than 30 Minutes Stroke Is this a Stroke Patient?: No Acute Heart Failure - Is this a Heart Failure Patient?: No
[2020-01-07 17:30] VITALS: BP 157/99
== END 2020-01-07 18:12 | disposition home or self-care (01) | DRG 439 ==
LOC: ER 06:41 → EH 12:57 → 4N 14:49
PROVIDERS: ADMIT Internal Medicine; ATTEND Internal Medicine
DX: K85.90 Acute pancreatitis without necrosis or infection, unspecified (principal); N39.0 Urinary tract infection, site not specified; I16.0 Hypertensive urgency; F14.90 Cocaine use, unspecified, uncomplicated; E11.65 Type 2 diabetes mellitus with hyperglycemia; I10 Essential (primary) hypertension; B96.20 Unspecified Escherichia coli [E. coli] as the cause of diseases classified elsewhere; F17.210 Nicotine dependence, cigarettes, uncomplicated; Z79.4 Long term (current) use of insulin; Z79.899 Other long term (current) drug therapy
CPT/HCPCS: 36415; 74177; 80048; 80053; 80061; 80307; 81001; 82803; 82962; 83036; 83690; 84439; 84443; 84481; 84703; 85025; 85027; 87086; 87088; 87186; 93005; 93010; 96361; 96365; 96375; 99291; C9113; J0360; J0696; J1644; J1815; J2270; J2405; J2550; J2765; J3010; J3490; J7030

== ENCOUNTER 2020-08-04 05:35 | Inpatient (IN) | payer MEDICAID ==
[2020-08-04] MEDS ORDERED: HYDRALAZINE HCL INJ/PF 20 MG/1 ML SDV IV ONE (07:14)
[2020-08-04] MEDS ORDERED: NORMAL SALINE 1000 ML 1,000 ML IV ONE (07:16)
[2020-08-04] MEDS ORDERED: MORPHINE SULFATE 10 MG/ML INJ IV ONE ×2 (07:16→10:36)
[2020-08-04] MEDS ORDERED: ONDANSETRON HCL INJ/PF 4 MG/2 ML SDV IV ONE (07:16)
[2020-08-04 07:34] LABS: ABSOLUTE MONOCYTES (AUTO) 0.3 10^3/uL (0.1-1.4); ABSOLUTE NEUT (AUTO) 6.1 10^3/uL (1.7-8.2); BASOPHILS % (AUTO) 0.7 % (0-2); EOSINOPHILS % (AUTO) 0.5 % (0-6); HEMATOCRIT 36.1 % (36.0-47.0); HEMOGLOBIN 11.5 g/dL (12.0-15.5); LYMPHOCYTES % (AUTO) 13.8 % (13-45); MEAN CORPUSCULAR HEMOGLOBIN 21.7 pg (27.0-33.4); MEAN CORPUSCULAR HGB CONC 31.8 g/dL (32.0-36.0); MEAN CORPUSCULAR VOLUME 68 fl (80-97); MONOCYTES % (AUTO) 3.8 % (3-13); PLATELET COUNT 302 10^3/uL (150-450); RED CELL DISTRIBUTION WIDTH 16.8 % (11.5-14.0); SEGMENTED NEUTROPHILS % (AUTO) 81.2 % (42-78); TOTAL CELLS COUNTED % (AUTO) 100 %; WHITE BLOOD COUNT 7.4 10^3/uL (4.0-10.5)
--- NOTE | 2020-08-04 07:45 | RADIOLOGY REPORT (SQ) ---
EXAM DESCRIPTION: XR CHEST 1 VIEW COMPLETED DATE/TME: 08/04/2020 07:22 CLINICAL HISTORY: N,V,abd pain, BP 220/130 COMPARISON: None. FINDINGS: Single frontal radiograph view of the chest. Cardiomediastinal silhouette: Normal size and contour. Leads overlie the chest. Lungs: No consolidation, pneumothorax, or pleural effusion. Bones: No acute osseous abnormality. Upper abdomen: No abnormality identified. IMPRESSION: 1. No acute pulmonary process identified.
[2020-08-04 08:05] LABS: ALBUMIN 4.5 g/dL (3.5-5.0); ALKALINE PHOSPHATASE 113 U/L (38-126); ANION GAP 13 (5-19); ASPARTATE AMINO TRANSFERASE 16 U/L (14-36); BILIRUBIN,DIRECT 0.2 mg/dL (0.0-0.4); BILIRUBIN,TOTAL 0.5 mg/dL (0.2-1.3); BLOOD UREA NITROGEN 8 mg/dL (7-20); CALCIUM 9.6 mg/dL (8.4-10.2); CARBON DIOXIDE 26 mmol/L (22-30); CHLORIDE 96 mmol/L (98-107); CREATINE KINASE 84 U/L (30-135); GLUCOSE 390 mg/dL (75-110); POTASSIUM 3.8 mmol/L (3.6-5.0); TOTAL PROTEIN 8.5 g/dL (6.3-8.2)
[2020-08-04 08:06] LABS: ALCOHOL < 10 mg/dL (NONE DETECTED)
[2020-08-04] MEDS ORDERED: LIDOCAINE 2% VISCOUS SOLN 15 ML UDCUP PO ONE (08:37)
[2020-08-04] MEDS ORDERED: MAG HYDROX/AL HYDROX/SIMETH SUSP 30 ML UDCUP PO ONE (08:37)
[2020-08-04] MEDS ORDERED: RINGERS SOLUTION,LACTATED 1,000 ML IV ONE (08:38)
--- NOTE | 2020-08-04 08:38 | ER Document Report ---
Entered by NUBIA SHEPPARD SCRIBE 08/04/20 0715 Acting as scribe for:NEFTALY HYATT MD ED GI/ - General Chief Complaint: Nausea/Vomiting Stated Complaint: VOMITING Time Seen by Provider: 08/04/20 07:03 Mode of Arrival: Medic Information source: Patient, Emergency Med Personnel Notes: This 34 year old female patient with a history of hypertension, pancreatitis, a nd type 2 diabetes mellitus presents to the ED today via EMS with complaints of epigastric pain with associated nausea and vomiting for the past x3 days. Patient states that she ran out of her Lantus x3 days ago; BGL was 360 with EMS. Patient reportedly told nursing that the she has not been taking any of her medications including Lopressor and Lisinopril which were prescribed to her during her last visit here on 01/04 where she was admitted for hypertensive urgency, acute pancreatitis, and cocaine abuse. Review of the patient's external pharmacy records reveal that the patient may have not ever filled those prescriptions in addition to Lantus and Nicotine patches. TRAVEL OUTSIDE OF THE [place] IN LAST 30 DAYS: No - Related Data Allergies/Adverse Reactions: No Known Allergies Allergy (Verified 01/24/19 11:13) Past Medical History - General Information source: Patient, [facility] Records - Social History Smoking Status: Current Every Day Smoker Smoking Education Provided: No Frequency of alcohol use: Occasional Family History: Reviewed & Not Pertinent - Past Medical History Cardiac Medical History: Reports: Hx Hypertension Endocrine Medical History: Reports: Hx Diabetes Mellitus Type 2 GI Medical History: Reports: Hx Pancreatitis Past Surgical History: Reports: Hx Orthopedic Surgery - L hip, Hx Tubal Ligation - Immunizations Hx Diphtheria, Pertussis, Tetanus Vaccination: No - Unknown Review of Systems - Review of Systems Constitutional: No symptoms reported EENT: No symptoms reported Cardiovascular: No symptoms reported Respiratory: No symptoms reported Gastrointestinal: See HPI, Abdominal pain, Nausea, Vomiting Genitourinary: No symptoms reported Female Genitourinary: No symptoms reported Musculoskeletal: No symptoms reported Skin: No symptoms reported Hematologic/Lymphatic: No symptoms reported Neurological/Psychological: No symptoms reported -: Yes All other systems reviewed and negative Physical Exam - Vital signs Vitals: Temp 98.7 F 08/04/20 06:03 - General General appearance: Alert In distress: None - HEENT Head: Normocephalic, Atraumatic Eyes: Normal Pupils: PERRL - Respiratory Respiratory status: No respiratory distress Chest status: Nontender Breath sounds: Normal Chest palpation: Normal - Cardiovascular Rhythm: Regular Heart sounds: Normal auscultation Murmur: No Friction rub: No Gallop: None auscultated - Abdominal Inspection: Obese, Other - Loose skin Distension: No distension Bowel sounds: Normal Tenderness: Tender - Epigastic tenderness to palpation Organomegaly: No organomegaly - Back Back: Normal, Nontender - Extremities General upper extremity: Normal inspection General lower extremity: Normal inspection. No: Edema - Neurological Neuro grossly intact: Yes Orientation: AAOx4 [place] Coma Scale Eye Opening: Spontaneous Radha Coma Scale Verbal: Oriented [place] Coma Scale Motor: Obeys Commands Radha Coma Scale Total: 15 - Psychological Associated symptoms: Normal affect, Normal mood - Skin Skin Temperature: Warm Skin Moisture: Dry Skin Color: Normal Course - Re-evaluation Re-evalutation: 08/04/20 11:46 Patient blood pressure has remained very high, urine drug screen is positive for cocaine. She was given labetalol for her blood pressure. - Vital Signs Vital signs: Temp Pulse Resp BP Pulse Ox 98.1 F 87 16 113/61 100 08/05/20 10:00 08/05/20 14:00 08/05/20 03:30 08/05/20 03:30 08/05/20 03:30 - Laboratory Result Diagrams: 08/05/20 06:33 08/05/20 06:33 Laboratory results interpreted by me: 08/04/20 08/04/20 08/04/20 06:30 06:30 06:30 RBC 5.30 H Hgb 11.5 L MCV 68 L MCH 21.7 L MCHC 31.8 L RDW 16.8 H Seg Neutrophils % 81.2 H Sodium 134.6 L Chloride 96 L Glucose 390 H POC Glucose Hemoglobin A1c % 11.0 H Total Protein 8.5 H Urine Protein Urine Glucose (UA) Urine Ketones Ur Leukocyte Esterase 08/04/20 08/04/20 10:30 12:33 RBC Hgb MCV MCH MCHC RDW Seg Neutrophils % Sodium Chloride Glucose POC Glucose 376 H Hemoglobin A1c % Total Protein Urine Protein >=500 H Urine Glucose (UA) >=500 H Urine Ketones 80 H Ur Leukocyte Esterase MODERATE H - Diagnostic Test Radiology reviewed: Image reviewed, Reports reviewed - Chest x-ray does not show acute - EKG Interpretation by Me EKG shows normal: Sinus rhythm, [place], Intervals, QRS Complexes. abnormal: ST-T Waves - Borderline T abnormalities Rate: Normal - 88 Rhythm: NSR P Waves: LAE When compared to previous EKG there are: No significant change - Consults Dr. Trevizo Time consulted: 11:50 Consulted provider: will come to ER Critical Care Note - Critical Care Note Total time excluding time spent on procedures (mins): 35 Comments: At least 35 minutes spent evaluating patient, reviewing current and prior medical records. Reevaluations following treatments. Time spent discussing case with the hospitalist service to get the patient admitted to the hospital. Discharge - Discharge Clinical Impression: Cocaine abuse, Hypertensive urgency, Hyperglycemia Diabetes type 2, uncontrolled Qualifiers: Glycemic state: with hyperglycemia Qualified Code(s): E11.65 - Type 2 diabetes mellitus with hyperglycemia Abdominal pain Qualifiers: Abdominal location: epigastric Qualified Code(s): R10.13 - Epigastric pain Nausea and vomiting Qualifiers: Vomiting type: unspecified Vomiting Intractability: non-intractable Qualified Code(s): R11.2 - Nausea with vomiting, unspecified Condition: Good Disposition: ADMITTED INPATIENT Admitting Provider: Joseline (Hospitalist) Unit Admitted: IMCU I personally performed the services described in the documentation, reviewed and edited the documentation which was dictated to the scribe in my presence, and it accurately records my words and actions.
[2020-08-04] MEDS ORDERED: METOCLOPRAMIDE HCL INJ/PF 10 MG/2 ML SDV IV ONE (10:36)
[2020-08-04 10:52] LABS: APPEARANCE,URINE SLIGHTLY-CLOUDY; BILIRUBIN,URINE NEGATIVE (NEGATIVE); COLOR,URINE YELLOW; GLUCOSE, URINE >=500 mg/dL (NEGATIVE); KETONES,URINE 80 mg/dL (NEGATIVE); LEUKOCYTE ESTERASE,URINE MODERATE (NEGATIVE); NITRITE,URINE NEGATIVE (NEGATIVE); PROTEIN,URINE >=500 mg/dL (NEGATIVE); URINE SPECIFIC GRAVITY 1.021; UROBILINOGEN,URINE NEGATIVE mg/dL (<2.0)
[2020-08-04 11:10] LABS: URINE AMPHETAMINES SCREEN NEGATIVE; URINE BARBITURATES SCREEN NEGATIVE; URINE BENZODIAZEPINES SCREEN NEGATIVE; URINE MARIJUANA (THC) SCREEN NEGATIVE; URINE METHADONE SCREEN NEGATIVE; URINE PHENCYCLIDINE SCREEN NEGATIVE
[2020-08-04 11:14] LABS: URINE COCAINE SCREEN UNCONFIRMED POSITIVE
[2020-08-04] MEDS ORDERED: LABETALOL HCL INJ 20 MG/4 ML DISP.SYRIN IV ONE ×2 (11:14→11:51)
[2020-08-04] MEDS ORDERED: ACETAMINOPHEN 325 MG TABLET PO PRN (11:58)
[2020-08-04] MEDS ORDERED: NITROGLYCERIN/D5W 50 MG/250 ML RTUINJ IV PRN (12:03)
[2020-08-04] MEDS ORDERED: GLUCAGON,HUMAN RECOMB 1 MG INJ IM PRN (12:04)
[2020-08-04] MEDS ORDERED: DEXTROSE 50%-WATER 25 GM/50 ML DISP.SYRIN IV PRN ×2 (12:04)
[2020-08-04] MEDS ORDERED: DEXTROSE 40% GEL 15 GM TUBE PO PRN ×2 (12:04)
[2020-08-04] MEDS ORDERED: INSULIN REG, HUMAN 100 UNIT/ML 3 ML VIAL (PYX) IV ONE (12:05)
--- NOTE | 2020-08-04 12:35 | EKG REPORT ---
SEVERITY:- BORDERLINE ECG - SINUS RHYTHM PROBABLE LEFT ATRIAL ABNORMALITY BORDERLINE T WAVE ABNORMALITIES : Confirmed by: Herve Treviño MD 04-Aug-2020 12:34:26
[2020-08-04 15:11] LABS: VENOUS BLOOD BASE EXCESS -2.6 mmol/L; VENOUS BLOOD PCO2 49.3 mmHg (35-63); VENOUS BLOOD PH 7.31 (7.30-7.42)
[2020-08-04] MEDS ORDERED: PANTOPRAZOLE SODIUM 40 MG VIAL IV ONE (15:30)
--- NOTE | 2020-08-04 15:30 | PDOC H&P ---
History of Present Illness Admission Date/PCP: 08/04/20 13:14 NO LOCALMD Patient complains of: abdominal pain History of Present Illness: LESLEY POOLE is a 34 year old female, past medical history of diabetes, hypertension, cocaine use who came in the ED today due to abdominal pain. Symptoms started about 3 days prior to admission when she developed epigastric pain, on and off, nonradiating, worse with food intake, 10 out of 10 on a pain scale. Abdominal pain progressed and she developed several episodes of sometimes blood streaked vomitus last night more than 5 times. She denied any fever, melena, urinary symptoms. No chest pain, no shortness of breath, no palpitations. She has a prior history of pancreatitis back in December 2019. She is on Lantus 18 units since twice a day but admits to missing several doses of Lantus. She also takes 2 blood pressure medications which she was unable to recall. She admits to taking cocaine last Sunday and occasional marijuana use. In the ED blood pressure noted to be 241/136, Heart rate of 105, respiratory rate of 18, O2 sat 95% on room air. Complete blood count showed WBC of 7.4, hemoglobin 11.5, platelet 202. CMP showed mild hyponatremia 134.6, normal potassium, glucose 390, A1c 11. She was given a total of 40 mg labetalol IV, hydralazine 20 mg IV. Hospitalist service was called for further evaluation and management. Past Medical History Cardiac Medical History: Reports: Hypertension Pulmonary Medical History: Reports: None EENT Medical History: Reports: None Neurological Medical History: Reports: None Endocrine Medical History: Reports: Diabetes Mellitus Type 1, Diabetes Mellitus Type 2 GI Medical History: Reports: Other - History of pancreatitis Psychiatric Medical History: Reports: Substance Abuse Denies: Depression Traumatic Medical History: Reports: None Hematology: Reports: None Past Surgical History Past Surgical History: Reports: Orthopedic Surgery - L hip, Tubal Ligation Social History Information Source: Patient Lives with: Family Smoking Status: Current Every Day Smoker Frequency of Alcohol Use: Social Hx Recreational Drug Use: Yes Drugs: Cocaine Hx Prescription Drug Abuse: No Family History Family History: Reviewed & Not Pertinent Parental Family History Reviewed: Yes Children Family History Reviewed: Yes Sibling(s) Family History Reviewed.: Yes Medication/Allergy Home Medications: Insulin Glargine,Hum.rec.anlog [Lantus Insulin 100 Unit/1 ml 10 ml] 15 unit SUBCUT BID 01/05/20 Lisinopril [Prinivil 5 mg Tablet] 5 mg PO Q12 01/05/20 Metoprolol Tartrate [Lopressor 50 mg Tablet] 50 mg PO Q12 01/05/20 Nicotine [Nicoderm 7 mg/24 Hr Transdermal Patch] 1 each TD DAILYP PRN patch.td24 01/07/20 Allergies/Adverse Reactions: No Known Allergies Allergy (Verified 01/24/19 11:13) Review of Systems Constitutional: ABSENT: chills, fever(s), weakness Eyes: ABSENT: visual disturbances Ears: ABSENT: hearing changes Nose, Mouth, and Throat: ABSENT: mouth pain Cardiovascular: ABSENT: chest pain, orthropnea, palpitations Respiratory: ABSENT: cough, dyspnea Gastrointestinal: PRESENT: abdominal pain, coffee ground emesis, hematemesis, nausea, vomiting. ABSENT: diarrhea Neurological: ABSENT: abnormal gait, abnormal movements Physical Exam Vital Signs: Temp Pulse Resp BP Pulse Ox 98.7 F 20 211/126 H 100 08/04/20 06:03 08/04/20 09:30 08/04/20 09:31 08/04/20 09:30 Intake & Output 08/03/20 08/04/20 08/05/20 06:59 06:59 06:59 Intake Total 1999 Balance 1999 Weight 87 kg General appearance: PRESENT: no acute distress, cooperative Head exam: PRESENT: atraumatic, normocephalic Eye exam: PRESENT: EOMI, PERRLA Mouth exam: PRESENT: moist Neck exam: PRESENT: full ROM Respiratory exam: PRESENT: clear to auscultation lázaro, symmetrical, unlabored Cardiovascular exam: PRESENT: RRR, +S1, +S2 GI/Abdominal exam: PRESENT: normal bowel sounds, soft, tenderness - Epigastric tenderness. ABSENT: guarding, rebound Extremities exam: PRESENT: full ROM Musculoskeletal exam: PRESENT: full ROM Neurological exam: PRESENT: alert, awake, oriented to person, oriented to place, oriented to time, oriented to situation Psychiatric exam: PRESENT: normal mood Skin exam: PRESENT: normal color Results Laboratory Results: 08/04/20 06:30 08/04/20 06:30 08/04/20 08/04/20 08/04/20 06:30 06:30 10:30 WBC 7.4 RBC 5.30 H Hgb 11.5 L Hct 36.1 MCV 68 L MCH 21.7 L MCHC 31.8 L RDW 16.8 H Plt Count 302 Seg Neutrophils % 81.2 H Sodium 134.6 L Potassium 3.8 Chloride 96 L Carbon Dioxide 26 Anion Gap 13 BUN 8 Creatinine 0.67 Est GFR ( Amer) > 60 Glucose 390 H Calcium 9.6 Magnesium 1.7 Total Bilirubin 0.5 AST 16 Alkaline Phosphatase 113 Total Protein 8.5 H Albumin 4.5 Lipase 101.7 Urine Color YELLOW Urine Appearance SLIGHTLY-CLOUDY Urine pH 8.0 Ur Specific [place] 1.021 Urine Protein >=500 H Urine Glucose (UA) >=500 H Urine Ketones 80 H Urine Blood NEGATIVE Urine Nitrite NEGATIVE Ur Leukocyte Esterase MODERATE H Urine WBC (Auto) 76 Urine RBC (Auto) 5 08/04/20 06:30 Creatine Kinase 84 Impressions: Chest X-Ray 08/04/20 07:13 IMPRESSION: 1. No acute pulmonary process identified. Assessment and Plan - Diagnosis (1) DKA (diabetic ketoacidoses) Qualifiers: Diabetes mellitus complication detail: without coma Is this a current diagnosis for this admission?: Yes Plan: - known diabetic poorly compliant with Lantus - BG 386 - no anion gap - +ve ketones - awaiting VBG - started on Lantus 20 u BID, SSI - accucheck, - NPO right now due to abdominal pain (2) Abdominal pain Qualifiers: Abdominal location: epigastric Qualified Code(s): R10.13 - Epigastric pain Is this a current diagnosis for this admission?: Yes Plan: came in with epigastric pain, nausea and vomiting - has a hx of acute pancreatitis - + epigastric tenderness, no rebound - BG 400 - CT abdomen pending - lipase pending ddx: abdominal pain 2/2 DKA, pancreatitis, PUD - IV fluids started - NPO - protonix (3) Hypertensive urgency Is this a current diagnosis for this admission?: Yes Plan: - BP 211/136 - no chest pain, no focal deficit - trop pending - s/p 20 mg IV labetalol and 20 mg IV hydralazine - this is likely de to uncontrolled HTN aggravated by cocaine use - started on nitro drip BP goal systolic between 160 to 190, diastolic 80-90 - resume lisinopril - added amlodipine (4) Diabetes type 2, uncontrolled Qualifiers: Glycemic state: with hyperglycemia Qualified Code(s): E11.65 - Type 2 diabetes mellitus with hyperglycemia Is this a current diagnosis for this admission?: Yes Plan: - A1C 11 - BG 386 s/p 10 u R insulin IV - on lantus 18 u BID at home poorly compliant - started on lantus 20 u BID and SSI - accucheck - hypoglycemia protocol - would need to be on basal bolus on discharge (5) Hyperglycemia Is this a current diagnosis for this admission?: Yes Plan: - 2/2 to uncontrolled DM (6) Cocaine abuse Is this a current diagnosis for this admission?: Yes Plan: - +ve cocaine on utox. Last use Sunday - would avoid sole Beta viktor for BP meds - started on lisinopril and amlodipine - benzo if agitated - Time Time Spent with patient: 25-34 minutes Medications reviewed and adjusted accordingly: Yes Anticipated Discharge Disposition: Home, Self Care Anticipated Discharge Timeframe: within 48 hours
--- NOTE | 2020-08-04 15:42 | RADIOLOGY REPORT (SQ) ---
EXAM DESCRIPTION: CT ABD/PELVIS WITH IV ONLY IMAGES COMPLETED DATE/TIME: 08/04/2020 2:16 pm REASON FOR STUDY: Epigastric abdominal pain, nausea and vomiting COMPARISON: 01/03/2020 TECHNIQUE: CT scan of the abdomen and pelvis performed using helical scanning technique with dynamic intravenous contrast injection. No oral contrast. Images reviewed with lung, soft tissue, and bone windows. Reconstructed coronal and sagittal MPR images reviewed. Delayed images for evaluation of the urinary system also acquired. All images stored on PACS. All CT scanners at this facility use dose modulation, iterative reconstruction, and/or weight based d osing when appropriate to reduce radiation dose to as low as reasonably achievable (ALARA). [facility]: Dose Right [facility]: CareDose [facility]: Dose Right [facility]: Teradose 4D [facility]: DrivenBI CONTRAST TYPE AND DOSE: contrast/concentration: Isovue 350.00 mmol/ml; Total Contrast Delivered: 77. 9 ml; Total Saline Delivered: 65.0 ml RENAL FUNCTION: GFR > 60. RADIATION DOSE: CT Rad equipment meets quality standard of care and radiation dose reduction techniq ues were employed. CTDIvol: 9.4 - 13.2 mGy. DLP: 1296 mGy-cm.. LIMITATIONS: None. FINDINGS: LOWER CHEST: No significant findings. No nodules or infiltrates. LIVER: Liver has normal size and contour. No focal hepatic mass. Hepatic and portal veins are paten t. No biliary ductal dilation. SPLEEN: Normal size. No focal lesions. PANCREAS: No masses. No significant calcifications. No adjacent inflammation or peripancreatic fluid collections. Pancreatic duct not dilated. GALLBLADDER: No identified stones by CT criteria. No inflammatory changes to suggest cholecystitis. ADRENAL GLANDS: No significant masses or asymmetry. RIGHT KIDNEY AND URETER: No solid masses. No significant calcifications. No hydronephrosis or hyd roureter. LEFT KIDNEY AND URETER: No solid masses. No significant calcifications. No hydronephrosis or hydr oureter. AORTA AND VESSELS: No aneurysm. No dissection. Renal arteries, SMA, celiac without stenosis. RETROPERITONEUM: No retroperitoneal adenopathy, hemorrhage or masses. BOWEL AND PERITONEAL CAVITY: There is a small hiatal hernia. No bowel obstruction. Stomach has a n ormal contour and appearance. No significant inflammatory change. No masses or inflammatory changes . No free fluid or peritoneal masses. APPENDIX: Normal. PELVIS: Uterus and ovaries have normal size. No adnexal mass. Urinary bladder has normal contour. Calcified pelvic phleboliths noted. No pelvic adenopathy or free fluid. ABDOMINAL WALL: No masses. No hernias. BONES: No significant or acute findings. OTHER: No other significant finding. IMPRESSION: 1. No acute abnormality in the abdomen or pelvis. 2. Small hiatal hernia. TECHNICAL DOCUMENTATION: JOB ID: [id number] Quality ID # [id number]: Final reports with documentation of one or more dose reduction techniques (e.g., Au tomated exposure control, adjustment of the mA and/or kV according to patient size, use of iterative reconstruction technique) 2010 [employer]- All Rights Reserved Reading location - IP/workstation name: [email or web address]
[2020-08-04] MEDS: NORMAL SALINE 1000 ML 1,000 ML IV PRN ×2 (16:03→21:25)
[2020-08-04] MEDS: LISINOPRIL 10 MG TABLET PO SCH (16:11)
[2020-08-04] MEDS: INSULIN LISPRO 100 UNIT/ML 3 ML VIAL SUBCUT SCH ×2 (16:12→22:18)
[2020-08-04] MEDS: DOCUSATE SODIUM 100 MG CAPSULE PO SCH (18:15)
[2020-08-04] MEDS: KETOROLAC TROMETHAMINE INJ/PF 30 MG/1 ML SDV IV PRN (18:17)
[2020-08-04] MEDS ORDERED: INSULIN GLARGINE,HUM.REC.ANLOG 1,000 UNIT/10 ML VIAL (PYX) SUBCUT ONE (22:24)
[2020-08-04] MEDS: INSULIN GLARGINE,HUM.REC.ANLOG 1,000 UNIT/10 ML VIAL SUBCUT SCH (22:25)
[2020-08-05] MEDS: NORMAL SALINE 1000 ML 1,000 ML IV PRN (04:48)
[2020-08-05] MEDS: ONDANSETRON HCL INJ/PF 4 MG/2 ML SDV IV PRN (04:51)
[2020-08-05 07:17] LABS: ABSOLUTE BASOPHILS # (AUTO) 0.1 10^3/uL (0.0-0.2); ABSOLUTE EOSINOPHILS # (AUTO) 0.1 10^3/uL (0.0-0.6); ABSOLUTE LYMPHOCYTES (AUTO) 2.2 10^3/uL (0.5-4.7); ABSOLUTE MONOCYTES (AUTO) 0.7 10^3/uL (0.1-1.4); ABSOLUTE NEUT (AUTO) 6.3 10^3/uL (1.7-8.2); BASOPHILS % (AUTO) 1.1 % (0-2); EOSINOPHILS % (AUTO) 0.7 % (0-6); HEMATOCRIT 33.7 % (36.0-47.0); HEMOGLOBIN 10.7 g/dL (12.0-15.5); LYMPHOCYTES % (AUTO) 23.4 % (13-45); MEAN CORPUSCULAR HEMOGLOBIN 21.4 pg (27.0-33.4); MEAN CORPUSCULAR HGB CONC 31.7 g/dL (32.0-36.0); MEAN CORPUSCULAR VOLUME 67 fl (80-97); MONOCYTES % (AUTO) 7.9 % (3-13); PLATELET COUNT 290 10^3/uL (150-450); RED BLOOD COUNT 5.01 10^6/uL (3.72-5.28); RED CELL DISTRIBUTION WIDTH 16.8 % (11.5-14.0); SEGMENTED NEUTROPHILS % (AUTO) 66.9 % (42-78); TOTAL CELLS COUNTED % (AUTO) 100 %; WHITE BLOOD COUNT 9.4 10^3/uL (4.0-10.5)
[2020-08-05 07:21] LABS: ALBUMIN 3.6 g/dL (3.5-5.0); ALKALINE PHOSPHATASE 80 U/L (38-126); ANION GAP 9 (5-19); ASPARTATE AMINO TRANSFERASE 16 U/L (14-36); BILIRUBIN,DIRECT 0.1 mg/dL (0.0-0.4); BILIRUBIN,TOTAL 0.4 mg/dL (0.2-1.3); BLOOD UREA NITROGEN 17 mg/dL (7-20); CALCIUM 8.1 mg/dL (8.4-10.2); CARBON DIOXIDE 24 mmol/L (22-30); CHLORIDE 102 mmol/L (98-107); GLUCOSE 118 mg/dL (75-110); POTASSIUM 3.6 mmol/L (3.6-5.0); TOTAL PROTEIN 7.5 g/dL (6.3-8.2)
[2020-08-05] MEDS ORDERED: METOCLOPRAMIDE HCL INJ/PF 10 MG/2 ML SDV IV ONE (08:00)
[2020-08-05] MEDS: INSULIN LISPRO 100 UNIT/ML 3 ML VIAL SUBCUT SCH ×4 (09:22→21:52)
[2020-08-05] MEDS: LISINOPRIL 10 MG TABLET PO SCH (09:53)
[2020-08-05] MEDS: AMLODIPINE BESYLATE 10 MG TABLET PO SCH (09:53)
[2020-08-05] MEDS: KETOROLAC TROMETHAMINE INJ/PF 30 MG/1 ML SDV IV PRN (09:53)
[2020-08-05] MEDS: DOCUSATE SODIUM 100 MG CAPSULE PO SCH ×2 (09:53→17:29)
[2020-08-05] MEDS: ENOXAPARIN SODIUM INJ 40 MG/0.4 ML DISP.SYRIN SUBCUT SCH (09:54)
[2020-08-05] MEDS: INSULIN GLARGINE,HUM.REC.ANLOG 1,000 UNIT/10 ML VIAL SUBCUT SCH ×2 (11:06→22:04)
[2020-08-05] MEDS ORDERED: LORAZEPAM INJ 2 MG/1 ML VIAL IV PRN (11:46)
--- NOTE | 2020-08-05 12:45 | PDOC PROGRESS REPORT ---
Subjective Date:: 08/05/20 Subjective:: LESLEY POOLE is a 34 year old female, past medical history of diabetes, hyperte nsion, cocaine use who came in the ED today due to abdominal pain. Symptoms started about 3 days prior to admission when she developed epigastric pain, on and off, nonradiating, worse with food intake, 10 out of 10 on a pain scale. Abdominal pain progressed and she developed several episodes of sometimes blood streaked vomitus last night more than 5 times. She denied any fever, melena, urinary symptoms. No chest pain, no shortness of breath, no palpitations. She has a prior history of pancreatitis back in December 2019. She is on Lantus 18 units since twice a day but admits to missing several doses of Lantus. She also takes 2 blood pressure medications which she was unable to recall. She admits to taking cocaine last Sunday and occasional marijuana use. In the ED blood pressure noted to be 241/136, Heart rate of 105, respiratory rate of 18, O2 sat 95% on room air. Complete blood count showed WBC of 7.4, hemoglobin 11.5, platelet 202. CMP showed mild hyponatremia 134.6, normal potassium, glucose 390, A1c 11. She was given a total of 40 mg labetalol IV, hydralazine 20 mg IV. Hospitalist service was called for further evaluation and management. D2 hospital stay 08/05/20. Patient was seen and examined at bedside. She is still experiencing abdominal pain and vomiting. CT abdomen result reviewed no acute abnormality in the abdomen or pelvis, small hiatal hernia. Lipase is normal. she had an episode of BP 50s systolic. Currently BP at 113/61. She was noted to have JUDI 1.36 which is likely because of the hypotension episodes. Troponin peaked at 0.021 then went down to 0.013, she denies any chest pain. Reason For Visit: HYPERTENSIVE URGENCY,COCAINE ABUSE Physical Exam Vital Signs: Temp Pulse Resp BP Pulse Ox 98.1 F 93 16 113/61 100 08/05/20 03:30 08/05/20 07:00 08/05/20 03:30 08/05/20 03:30 08/05/20 03:30 Intake & Output 08/04/20 08/05/20 08/06/20 06:59 06:59 06:59 Intake Total 4503 Output Total 620 Balance 3883 Weight 87 kg 85.9 kg General appearance: PRESENT: no acute distress, cooperative Head exam: PRESENT: atraumatic, normocephalic Eye exam: PRESENT: EOMI, PERRLA Mouth exam: PRESENT: moist Neck exam: PRESENT: full ROM Respiratory exam: PRESENT: clear to auscultation lázaro, symmetrical, unlabored Cardiovascular exam: PRESENT: RRR, +S1, +S2 Pulses: PRESENT: +2 pedal pulses bilateral Vascular exam: PRESENT: normal capillary refill GI/Abdominal exam: PRESENT: normal bowel sounds, soft Extremities exam: PRESENT: full ROM Musculoskeletal exam: PRESENT: full ROM Neurological exam: PRESENT: alert, awake, oriented to person, oriented to place, oriented to time, oriented to situation Psychiatric exam: PRESENT: normal mood Skin exam: PRESENT: normal color Results Laboratory Results: 08/05/20 06:33 08/05/20 06:33 08/04/20 08/04/20 08/05/20 14:51 14:51 06:33 WBC 9.4 RBC 5.01 Hgb 10.7 L Hct 33.7 L MCV 67 L MCH 21.4 L MCHC 31.7 L RDW 16.8 H Plt Count 290 Seg Neutrophils % 66.9 VBG pH 7.31 VBG pCO2 49.3 VBG HCO3 24.0 VBG Base Excess -2.6 Sodium Potassium Chloride Carbon Dioxide Anion Gap BUN Creatinine Est GFR ( Amer) Glucose Calcium Total Bilirubin AST Alkaline Phosphatase Total Protein Albumin Lipase 47.2 08/05/20 06:33 WBC RBC Hgb Hct MCV MCH MCHC RDW Plt Count Seg Neutrophils % VBG pH VBG pCO2 VBG HCO3 VBG Base Excess Sodium 134.9 L Potassium 3.6 Chloride 102 Carbon Dioxide 24 Anion Gap 9 BUN 17 Creatinine 1.39 H Est GFR ( Amer) 53 L Glucose 118 H Calcium 8.1 L Total Bilirubin 0.4 AST 16 Alkaline Phosphatase 80 Total Protein 7.5 Albumin 3.6 Lipase 08/04/20 08/04/20 08/04/20 06:30 14:51 18:21 Creatine Kinase 84 Troponin I 0.017 0.019 08/05/20 08/05/20 00:25 06:33 Creatine Kinase Troponin I 0.021 0.013 Impressions: Chest X-Ray 08/04/20 07:13 IMPRESSION: 1. No acute pulmonary process identified. Abdomen/Pelvis CT 08/04/20 11:54 IMPRESSION: 1. No acute abnormality in the abdomen or pelvis. 2. Small hiatal hernia. Assessment and Plan - Diagnosis (1) DKA (diabetic ketoacidoses) Qualifiers: Diabetes mellitus complication detail: without coma Is this a current diagnosis for this admission?: Yes Plan: - resolved - known diabetic poorly compliant with Lantus - BG 386 - no anion gap - +ve ketones - VBG pH 7.31 - started on Lantus 20 u BID, SSI - accucheck - hypoglycemia protocol (2) JUDI (acute kidney injury) Is this a current diagnosis for this admission?: Yes Plan: - Crea 0.67>1.39 - this is likely 2/2 to her hypotensive episode from last night - will continue Iv fluids and monitor (3) Abdominal pain Qualifiers: Abdominal location: epigastric Qualified Code(s): R10.13 - Epigastric pain Is this a current diagnosis for this admission?: Yes Plan: came in with epigastric pain, nausea and vomiting - has a hx of acute pancreatitis - + epigastric tenderness, no rebound - BG 400 - CT abdomen no significant findings, small hiatal hernia - lipase normal ddx: abdominal pain 2/2 DKA, pancreatitis, PUD - IV fluids started - clear liquids - protonix BID (4) Hypertensive urgency Is this a current diagnosis for this admission?: Yes Plan: - BP 211/136>113/60 - no chest pain, no focal deficit - trop 0.019>0.021>0.013 - s/p 20 mg IV labetalol and 20 mg IV hydralazine - this is likely de to uncontrolled HTN aggravated by cocaine use - resume lisinopril - added amlodipine (5) Diabetes type 2, uncontrolled Qualifiers: Glycemic state: with hyperglycemia Qualified Code(s): E11.65 - Type 2 diabetes mellitus with hyperglycemia Is this a current diagnosis for this admission?: Yes Plan: - A1C 11 - BG 386 s/p 10 u R insulin IV - on lantus 18 u BID at home poorly compliant - started on lantus 20 u BID and SSI - accucheck - hypoglycemia protocol - would need to be on basal bolus on discharge (6) Hyperglycemia Is this a current diagnosis for this admission?: Yes Plan: - 2/2 to uncontrolled DM (7) Cocaine abuse Is this a current diagnosis for this admission?: Yes Plan: - +ve cocaine on utox. Last use Sunday - would avoid sole Beta viktor for BP meds - started on lisinopril and amlodipine - benzo if agitated - Time Time Spent with patient: 25-34 minutes Medications reviewed and adjusted accordingly: Yes Anticipated Discharge Disposition: Home, Self Care Anticipated Discharge Timeframe: within 48 hours
[2020-08-05] MEDS ORDERED: ENALAPRILAT DIHYDRATE INJ/PF 1.25 MG/1 ML SDV IV ONE ×2 (17:33→21:00)
[2020-08-05] MEDS: PANTOPRAZOLE SODIUM 40 MG VIAL IV SCH (22:04)
[2020-08-06] MEDS: HYDRALAZINE HCL 25 MG TABLET PO PRN ×4 (00:07→21:46)
[2020-08-06] MEDS: ONDANSETRON HCL INJ/PF 4 MG/2 ML SDV IV PRN (06:34)
[2020-08-06 07:16] LABS: ABSOLUTE BASOPHILS # (AUTO) 0.1 10^3/uL (0.0-0.2); ABSOLUTE LYMPHOCYTES (AUTO) 2.2 10^3/uL (0.5-4.7); ABSOLUTE MONOCYTES (AUTO) 0.7 10^3/uL (0.1-1.4); ABSOLUTE NEUT (AUTO) 4.9 10^3/uL (1.7-8.2); EOSINOPHILS % (AUTO) 0.4 % (0-6); HEMATOCRIT 36.2 % (36.0-47.0); HEMOGLOBIN 11.8 g/dL (12.0-15.5); LYMPHOCYTES % (AUTO) 27.9 % (13-45); MEAN CORPUSCULAR HEMOGLOBIN 21.8 pg (27.0-33.4); MEAN CORPUSCULAR HGB CONC 32.5 g/dL (32.0-36.0); MEAN CORPUSCULAR VOLUME 67 fl (80-97); MONOCYTES % (AUTO) 8.6 % (3-13); PLATELET COUNT 332 10^3/uL (150-450); RED CELL DISTRIBUTION WIDTH 16.7 % (11.5-14.0); SEGMENTED NEUTROPHILS % (AUTO) 62.1 % (42-78); TOTAL CELLS COUNTED % (AUTO) 100 %; WHITE BLOOD COUNT 7.9 10^3/uL (4.0-10.5)
[2020-08-06 07:45] LABS: ALBUMIN 4.3 g/dL (3.5-5.0); ALKALINE PHOSPHATASE 98 U/L (38-126); ANION GAP 11 (5-19); ASPARTATE AMINO TRANSFERASE 19 U/L (14-36); BILIRUBIN,DIRECT 0.1 mg/dL (0.0-0.4); BILIRUBIN,TOTAL 0.5 mg/dL (0.2-1.3); BLOOD UREA NITROGEN 19 mg/dL (7-20); CARBON DIOXIDE 25 mmol/L (22-30); CHLORIDE 99 mmol/L (98-107); GLUCOSE 96 mg/dL (75-110); POTASSIUM 3.2 mmol/L (3.6-5.0); TOTAL PROTEIN 8.8 g/dL (6.3-8.2)
[2020-08-06] MEDS: INSULIN LISPRO 100 UNIT/ML 3 ML VIAL SUBCUT SCH ×3 (09:47→16:22)
[2020-08-06] MEDS: PANTOPRAZOLE SODIUM 40 MG VIAL IV SCH (10:00)
[2020-08-06] MEDS: ENOXAPARIN SODIUM INJ 40 MG/0.4 ML DISP.SYRIN SUBCUT SCH (10:31)
[2020-08-06] MEDS: INSULIN GLARGINE,HUM.REC.ANLOG 1,000 UNIT/10 ML VIAL SUBCUT SCH ×2 (10:31→21:45)
[2020-08-06] MEDS: CHLORTHALIDONE 25 MG TABLET PO SCH (10:32)
[2020-08-06] MEDS: AMLODIPINE BESYLATE 10 MG TABLET PO SCH (10:32)
[2020-08-06] MEDS: DOCUSATE SODIUM 100 MG CAPSULE PO SCH ×2 (10:32→17:09)
[2020-08-06] MEDS: LISINOPRIL 10 MG TABLET PO SCH (10:32)
--- NOTE | 2020-08-06 11:20 | RADIOLOGY REPORT (SQ) ---
EXAM DESCRIPTION: CHEST 2 VIEWS IMAGES COMPLETED DATE/TIME: 08/06/2020 11:10 am REASON FOR STUDY: sob on exertion COMPARISON: None. EXAM PARAMETERS: NUMBER OF VIEWS: two views TECHNIQUE: Digital Frontal and Lateral radiographic views of the chest acquired. RADIATION DOSE: NA LIMITATIONS: none FINDINGS: LUNGS AND PLEURA: No opacities, masses or pneumothorax. No pleural effusion. MEDIASTINUM AND HILAR STRUCTURES: No masses or contour abnormalities. HEART AND VASCULAR STRUCTURES: Heart normal size. No evidence for failure. BONES: No acute findings. HARDWARE: None in the chest. OTHER: No other significant finding. IMPRESSION: NO ACUTE RADIOGRAPHIC FINDING IN THE CHEST. TECHNICAL DOCUMENTATION: JOB ID: [id number] 2010 [employer]- All Rights Reserved Reading location - IP/workstation name: [email or web address]
[2020-08-06] MEDS: POTASSIUM CHLORIDE 10 MEQ TABLET.ER PO SCH (12:22)
--- NOTE | 2020-08-06 13:24 | PDOC PROGRESS REPORT ---
Subjective Date:: 08/06/20 Subjective:: LESLEY POOLE is a 34 year old female, past medical history of diabetes, hyperte nsion, cocaine use who came in the ED today due to abdominal pain. Symptoms started about 3 days prior to admission when she developed epigastric pain, on and off, nonradiating, worse with food intake, 10 out of 10 on a pain scale. Abdominal pain progressed and she developed several episodes of sometimes blood streaked vomitus last night more than 5 times. She denied any fever, melena, urinary symptoms. No chest pain, no shortness of breath, no palpitations. She has a prior history of pancreatitis back in December 2019. She is on Lantus 18 units since twice a day but admits to missing several doses of Lantus. She also takes 2 blood pressure medications which she was unable to recall. She admits to taking cocaine last Sunday and occasional marijuana use. In the ED blood pressure noted to be 241/136, Heart rate of 105, respiratory rate of 18, O2 sat 95% on room air. Complete blood count showed WBC of 7.4, hemoglobin 11.5, platelet 202. CMP showed mild hyponatremia 134.6, normal potassium, glucose 390, A1c 11. She was given a total of 40 mg labetalol IV, hydralazine 20 mg IV. Hospitalist service was called for further evaluation and management. D2 hospital stay 08/05/20. Patient was seen and examined at bedside. She is still experiencing abdominal pain and vomiting. CT abdomen result reviewed no acute abnormality in the abdomen or pelvis, small hiatal hernia. Lipase is normal. she had an episode of BP 50s systolic. Currently BP at 113/61. She was noted to have JUDI 1.36 which is likely because of the hypotension episodes. Troponin peaked at 0.021 then went down to 0.013, she denies any chest pain. D3 hospital stay 08/06/20. She was seen and examined at bedside. Still reports feeling nauseous but the vomiting has resolved. BP still uncontrolled with systolic of 200. She complained she has trouble breathing but her sats remains 99% on RA and she's not coughing. CXR is normal. Her persistent abdominal pain and nausea can be from gastroparesis from uncontrolled DM. I have started her on Reglan. Reason For Visit: HYPERTENSIVE URGENCY,COCAINE ABUSE Physical Exam Vital Signs: Temp Pulse Resp BP Pulse Ox 98.2 F 90 18 200/97 H 100 08/06/20 10:00 08/06/20 07:12 08/06/20 07:12 08/06/20 07:12 08/06/20 07:12 Intake & Output 08/05/20 08/06/20 08/07/20 06:59 06:59 06:59 Intake Total 4503 1701 Output Total 620 Balance 3883 1701 Weight 85.9 kg 88.8 kg Results Laboratory Results: 08/06/20 06:52 08/06/20 06:52 08/06/20 08/06/20 06:52 06:52 WBC 7.9 RBC 5.40 H Hgb 11.8 L Hct 36.2 MCV 67 L MCH 21.8 L MCHC 32.5 RDW 16.7 H Plt Count 332 Seg Neutrophils % 62.1 Sodium 134.6 L Potassium 3.2 L Chloride 99 Carbon Dioxide 25 Anion Gap 11 BUN 19 Creatinine 1.10 Est GFR ( Amer) > 60 Glucose 96 Calcium 9.0 Total Bilirubin 0.5 AST 19 Alkaline Phosphatase 98 Total Protein 8.8 H Albumin 4.3 08/04/20 08/04/20 08/04/20 06:30 14:51 18:21 Creatine Kinase 84 Troponin I 0.017 0.019 08/05/20 08/05/20 00:25 06:33 Creatine Kinase Troponin I 0.021 0.013 Impressions: Abdomen/Pelvis CT 08/04/20 11:54 IMPRESSION: 1. No acute abnormality in the abdomen or pelvis. 2. Small hiatal hernia. Chest X-Ray 08/06/20 00:00 IMPRESSION: NO ACUTE RADIOGRAPHIC FINDING IN THE CHEST. Assessment and Plan - Diagnosis (1) Abdominal pain Qualifiers: Abdominal location: epigastric Qualified Code(s): R10.13 - Epigastric pain Is this a current diagnosis for this admission?: Yes Plan: came in with epigastric pain, nausea and vomiting - has a hx of acute pancreatitis - + epigastric tenderness, no rebound - BG 400 - CT abdomen no significant findings, small hiatal hernia - lipase normal ddx: abdominal pain 2/2 DKA, gastroparesis, - started on reglan - protonix (2) JUDI (acute kidney injury) Is this a current diagnosis for this admission?: Yes Plan: - Crea 0.67>1.39>1.09 - this is likely 2/2 to her hypotensive episode from last night - CTM (3) DKA (diabetic ketoacidoses) Qualifiers: Diabetes mellitus complication detail: without coma Is this a current diagnosis for this admission?: Yes Plan: - resolved - known diabetic poorly compliant with Lantus - BG 386 - no anion gap - +ve ketones - VBG pH 7.31 - started on Lantus 20 u BID, SSI - accucheck - hypoglycemia protocol (4) Hypertensive urgency Is this a current diagnosis for this admission?: Yes Plan: - BP 211/136>113/60 - no chest pain, no focal deficit - trop 0.019>0.021>0.013 - s/p 20 mg IV labetalol and 20 mg IV hydralazine - this is likely de to uncontrolled HTN aggravated by cocaine use - resume lisinopril - added amlodipine and chlorthalidone (5) Diabetes type 2, uncontrolled Qualifiers: Glycemic state: with hyperglycemia Qualified Code(s): E11.65 - Type 2 diabetes mellitus with hyperglycemia Is this a current diagnosis for this admission?: Yes Plan: - A1C 11 - BG 386 s/p 10 u R insulin IV - on lantus 18 u BID at home poorly compliant - started on lantus 20 u BID and SSI - accucheck - hypoglycemia protocol - would need to be on basal bolus on discharge (6) Hyperglycemia Is this a current diagnosis for this admission?: Yes Plan: - 2/2 to uncontrolled DM (7) Cocaine abuse Is this a current diagnosis for this admission?: Yes Plan: - +ve cocaine on utox. Last use Sunday - would avoid sole Beta viktor for BP meds - started on lisinopril and amlodipine - benzo if agitated (8) UTI (urinary tract infection) Qualifiers: Urinary tract infection type: site unspecified Hematuria presence: without hematuria Qualified Code(s): N39.0 - Urinary tract infection, site not specified Is this a current diagnosis for this admission?: Yes Plan: - UA +ve for leukocyte esterase, WBC 76 - urine culture pending - will start ceftriaxone - Time Time Spent with patient: 25-34 minutes Medications reviewed and adjusted accordingly: Yes Anticipated Discharge Disposition: Home, Self Care Anticipated Discharge Timeframe: within 48 hours
[2020-08-06] MEDS ORDERED: CEFTRIAXONE INJ 1000 MG VIAL IM ONE (14:00)
[2020-08-06] MEDS ORDERED: LIDOCAINE HCL 1% INJ (FOR 1 GM VIAL) INJ ONE (15:00)
[2020-08-06] MEDS: METOCLOPRAMIDE HCL 10 MG TABLET PO SCH ×2 (15:11→21:45)
[2020-08-06] MEDS ORDERED: LABETALOL HCL INJ 20 MG/4 ML DISP.SYRIN IV ONE (17:15)
[2020-08-06] MEDS ORDERED: CLONIDINE HCL 0.1 MG TABLET PO ONE (17:45)
[2020-08-07] MEDS: INSULIN LISPRO 100 UNIT/ML 3 ML VIAL SUBCUT SCH ×2 (00:44→09:08)
[2020-08-07] MEDS ORDERED: PANTOPRAZOLE SODIUM 40 MG TABLET.DR PO SCH (06:00)
[2020-08-07 06:07] LABS: ABSOLUTE BASOPHILS # (AUTO) 0.1 10^3/uL (0.0-0.2); ABSOLUTE LYMPHOCYTES (AUTO) 2.9 10^3/uL (0.5-4.7); ABSOLUTE MONOCYTES (AUTO) 0.6 10^3/uL (0.1-1.4); ABSOLUTE NEUT (AUTO) 2.4 10^3/uL (1.7-8.2); EOSINOPHILS % (AUTO) 0.4 % (0-6); HEMATOCRIT 32.5 % (36.0-47.0); HEMOGLOBIN 10.5 g/dL (12.0-15.5); MEAN CORPUSCULAR HEMOGLOBIN 21.7 pg (27.0-33.4); MEAN CORPUSCULAR HGB CONC 32.2 g/dL (32.0-36.0); MEAN CORPUSCULAR VOLUME 68 fl (80-97); MONOCYTES % (AUTO) 9.9 % (3-13); PLATELET COUNT 277 10^3/uL (150-450); RED BLOOD COUNT 4.82 10^6/uL (3.72-5.28); RED CELL DISTRIBUTION WIDTH 16.8 % (11.5-14.0); SEGMENTED NEUTROPHILS % (AUTO) 40.7 % (42-78); TOTAL CELLS COUNTED % (AUTO) 100 %
[2020-08-07 06:23] LABS: ALBUMIN 3.2 g/dL (3.5-5.0); ALKALINE PHOSPHATASE 57 U/L (38-126); ANION GAP 9 (5-19); ASPARTATE AMINO TRANSFERASE 21 U/L (14-36); BILIRUBIN,DIRECT 0.4 mg/dL (0.0-0.4); BILIRUBIN,TOTAL 0.8 mg/dL (0.2-1.3); BLOOD UREA NITROGEN 20 mg/dL (7-20); CALCIUM 8.4 mg/dL (8.4-10.2); CARBON DIOXIDE 23 mmol/L (22-30); CHLORIDE 102 mmol/L (98-107); GLUCOSE 97 mg/dL (75-110); TOTAL PROTEIN 6.8 g/dL (6.3-8.2)
[2020-08-07 06:45] LABS: POTASSIUM 4.2 mmol/L (3.6-5.0)
[2020-08-07 09:44] VITALS: BP 178/92
[2020-08-07] MEDS ORDERED: POTASSIUM CHLORIDE 20 MEQ PACKET PO SCH (10:00)
[2020-08-07] MEDS: POTASSIUM CHLORIDE 10 MEQ TABLET.ER PO SCH (10:27)
[2020-08-07] MEDS: LISINOPRIL 10 MG TABLET PO SCH (10:27)
[2020-08-07] MEDS: CHLORTHALIDONE 25 MG TABLET PO SCH (10:27)
[2020-08-07] MEDS: AMLODIPINE BESYLATE 10 MG TABLET PO SCH (10:27)
[2020-08-07] MEDS: DOCUSATE SODIUM 100 MG CAPSULE PO SCH (10:28)
[2020-08-07] MEDS: METOCLOPRAMIDE HCL 10 MG TABLET PO SCH (10:28)
[2020-08-07] MEDS: INSULIN GLARGINE,HUM.REC.ANLOG 1,000 UNIT/10 ML VIAL SUBCUT SCH (10:31)
[2020-08-07] MEDS: ENOXAPARIN SODIUM INJ 40 MG/0.4 ML DISP.SYRIN SUBCUT SCH (10:32)
--- NOTE | 2020-08-09 19:12 | PDOC DISCHARGE SUMMARY ---
Impression - Admit/DC Date/PCP Admission Date/Primary Care Provider: 08/04/20 13:14 NO LOCALMD Discharge Date: 08/04/20 - Discharge Diagnosis (1) Abdominal pain Is this a current diagnosis for this admission?: Yes (2) JUDI (acute kidney injury) Is this a current diagnosis for this admission?: Yes (3) DKA (diabetic ketoacidoses) Is this a current diagnosis for this admission?: Yes (4) Hypertensive urgency Is this a current diagnosis for this admission?: Yes (5) Diabetes type 2, uncontrolled Is this a current diagnosis for this admission?: Yes (6) Hyperglycemia Is this a current diagnosis for this admission?: Yes (7) Cocaine abuse Is this a current diagnosis for this admission?: Yes (8) UTI (urinary tract infection) Is this a current diagnosis for this admission?: Yes - Assessment Summary: (1) Abdominal pain Qualifiers: Abdominal location: epigastric Qualified Code(s): R10.13 - Epigastric pain Is this a current diagnosis for this admission?: Yes Plan: came in with epigastric pain, nausea and vomiting - has a hx of acute pancreatitis - + epigastric tenderness, no rebound - BG 400 - CT abdomen no significant findings, small hiatal hernia - lipase normal ddx: abdominal pain 2/2 DKA, gastroparesis, - started on reglan - protonix (2) JUDI (acute kidney injury) Is this a current diagnosis for this admission?: Yes Plan: - Crea 0.67>1.39>1.09 - this is likely 2/2 to her hypotensive episode from last night - CTM (3) DKA (diabetic ketoacidoses) Qualifiers: Diabetes mellitus complication detail: without coma Is this a current diagnosis for this admission?: Yes Plan: - resolved - known diabetic poorly compliant with Lantus - BG 386 - no anion gap - +ve ketones - VBG pH 7.31 - started on Lantus 20 u BID, SSI - accucheck - hypoglycemia protocol (4) Hypertensive urgency Is this a current diagnosis for this admission?: Yes Plan: - BP 211/136>113/60 - no chest pain, no focal deficit - trop 0.019>0.021>0.013 - s/p 20 mg IV labetalol and 20 mg IV hydralazine - this is likely de to uncontrolled HTN aggravated by cocaine use - resume lisinopril - added amlodipine and chlorthalidone (5) Diabetes type 2, uncontrolled Qualifiers: Glycemic state: with hyperglycemia Qualified Code(s): E11.65 - Type 2 diabetes mellitus with hyperglycemia Is this a current diagnosis for this admission?: Yes Plan: - A1C 11 - BG 386 s/p 10 u R insulin IV - on lantus 18 u BID at home poorly compliant - started on lantus 20 u BID and SSI - accucheck - hypoglycemia protocol - would need to be on basal bolus on discharge (6) Hyperglycemia Is this a current diagnosis for this admission?: Yes Plan: - 2/2 to uncontrolled DM (7) Cocaine abuse Is this a current diagnosis for this admission?: Yes Plan: - +ve cocaine on utox. Last use Sunday - would avoid sole Beta viktor for BP meds - started on lisinopril and amlodipine - benzo if agitated (8) UTI (urinary tract infection) Qualifiers: Urinary tract infection type: site unspecified Hematuria presence: without hematuria Qualified Code(s): N39.0 - Urinary tract infection, site not specified Is this a current diagnosis for this admission?: Yes Plan: - UA +ve for leukocyte esterase, WBC 76 - urine culture pending - will start ceftriaxone - Additional Information Discharge Diet: Diabetic Discharge Activity: Activity As Tolerated Referrals: TORIE HIGGINS MD [ACTIVE STAFF] - (Someone will call you with appointment time and date. faxed requested copies and they will contsct patient) Prescriptions: Chlorthalidone [Hygroton 25 mg Tablet] 25 mg PO DAILY 30 Days #30 tablet Insulin Glargine,Hum.rec.anlog [Lantus Insulin 100 Unit/1 ml 10 ml] 20 unit SUBCUT Q12 30 Days #2 unit Amlodipine Besylate [Norvasc 10 mg Tablet] 10 mg PO DAILY 30 Days #30 tablet Lisinopril [Prinivil 10 mg Tablet] 20 mg PO DAILY 30 Days #30 tablet Pantoprazole Sodium [Protonix [address] Tablet] 40 mg PO Q6AM 30 Days #[address] Metoclopramide HCl [Reglan 10 mg Tablet] 5 mg PO ACHS 30 Days #30 tablet Home Medications: Nicotine [Nicoderm 7 mg/24 Hr Transdermal Patch] 1 each TD DAILYP PRN patch.td24 01/07/20 Amlodipine Besylate [Norvasc 10 mg Tablet] 10 mg PO DAILY 30 Days #30 tablet 08/07/20 Chlorthalidone [Hygroton 25 mg Tablet] 25 mg PO DAILY 30 Days #30 tablet 08/07/20 Insulin Glargine,Hum.rec.anlog [Lantus Insulin 100 Unit/1 ml 10 ml] 20 unit SUBCUT Q12 30 Days #2 unit 08/07/20 Lisinopril [Prinivil 10 mg Tablet] 20 mg PO DAILY 30 Days #30 tablet 08/07/20 Metoclopramide HCl [Reglan 10 mg Tablet] 5 mg PO ACHS 30 Days #30 tablet 08/07/20 Pantoprazole Sodium [Protonix [address] Tablet] 40 mg PO Q6AM 30 Days #30 ta blet. 08/07/20 History of Present Illiness History of Present Illness: LESLEY POOLE is a 34 year old female, past medical history of diabetes, hypertension, cocaine use who came in the ED today due to abdominal pain. Symptoms started about 3 days prior to admission when she developed epigastric pain, on and off, nonradiating, worse with food intake, 10 out of 10 on a pain scale. Abdominal pain progressed and she developed several episodes of sometimes blood streaked vomitus last night more than 5 times. She denied any fever, melena, urinary symptoms. No chest pain, no shortness of breath, no palpitations. She has a prior history of pancreatitis back in December 2019. She is on Lantus 18 units since twice a day but admits to missing several doses of Lantus. She also takes 2 blood pressure medications which she was unable to recall. She admits to taking cocaine last Sunday and occasional marijuana use. In the ED blood pressure noted to be 241/136, Heart rate of 105, respiratory rate of 18, O2 sat 95% on room air. Complete blood count showed WBC of 7.4, hemoglobin 11.5, platelet 202. CMP showed mild hyponatremia 134.6, normal pot assium, glucose 390, A1c 11. She was given a total of 40 mg labetalol IV, hydralazine 20 mg IV. Hospitalist service was called for further evaluation and management. Hospital Course Hospital Course: D2 hospital stay 08/05/20. Patient was seen and examined at bedside. She is still experiencing abdominal pain and vomiting. CT abdomen result reviewed no acute abnormality in the abdomen or pelvis, small hiatal hernia. Lipase is normal. she had an episode of BP 50s systolic. Currently BP at 113/61. She was noted to have JUDI 1.36 which is likely because of the hypotension episodes. Troponin peaked at 0.021 then went down to 0.013, she denies any chest pain. D3 hospital stay 08/06/20. She was seen and examined at bedside. Still reports feeling nauseous but the vomiting has resolved. BP still uncontrolled with systolic of 200. She complained she has trouble breathing but her sats remains 99% on RA and she's not coughing. CXR is normal. Her persistent abdominal pain and nausea can be from gastroparesis from uncontrolled DM. I have started her on Reglan. She was discharged eventually. Physical Exam Vital Signs: Temp Pulse Resp BP Pulse Ox 98.3 F 99 18 178/92 H 100 08/07/20 11:18 08/07/20 11:18 08/07/20 11:18 08/07/20 11:18 08/07/20 11:18 General appearance: PRESENT: no acute distress, cooperative Head exam: PRESENT: atraumatic, normocephalic Eye exam: PRESENT: EOMI, PERRLA Mouth exam: PRESENT: moist Neck exam: PRESENT: full ROM Respiratory exam: PRESENT: clear to auscultation lázaro, symmetrical, unlabored Cardiovascular exam: PRESENT: RRR, +S1, +S2 GI/Abdominal exam: PRESENT: normal bowel sounds, soft. ABSENT: rebound, tenderness Extremities exam: PRESENT: full ROM Musculoskeletal exam: PRESENT: full ROM Neurological exam: PRESENT: alert, awake, oriented to person, oriented to place, oriented to time, oriented to situation Psychiatric exam: PRESENT: normal mood Skin exam: PRESENT: normal color Results Laboratory Results: WBC 6.0 10^3/uL (4.0-10.5) 08/07/20 05:40 RBC 4.82 10^6/uL (3.72-5.28) 08/07/20 05:40 Hgb 10.5 g/dL (12.0-15.5) L 08/07/20 05:40 Hct 32.5 % (36.0-47.0) L 08/07/20 05:40 MCV 68 fl (80-97) L 08/07/20 05:40 MCH 21.7 pg (27.0-33.4) L 08/07/20 05:40 MCHC 32.2 g/dL (32.0-36.0) 08/07/20 05:40 RDW 16.8 % (11.5-14.0) H 08/07/20 05:40 Plt Count 277 10^3/uL (150-450) 08/07/20 05:40 Lymph % (Auto) 48.0 % (13-45) H 08/07/20 05:40 [place] % (Auto) 9.9 % (3-13) 08/07/20 05:40 Eos % (Auto) 0.4 % (0-6) 08/07/20 05:40 Baso % (Auto) 1.0 % (0-2) 08/07/20 05:40 Absolute Neuts (auto) 2.4 10^3/uL (1.7-8.2) 08/07/20 05:40 Absolute Lymphs (auto) 2.9 10^3/uL (0.5-4.7) 08/07/20 05:40 Absolute Monos (auto) 0.6 10^3/uL (0.1-1.4) 08/07/20 05:40 Absolute Eos (auto) 0.0 10^3/uL (0.0-0.6) 08/07/20 05:40 Absolute Basos (auto) 0.1 10^3/uL (0.0-0.2) 08/07/20 05:40 Seg Neutrophils % 40.7 % (42-78) L 08/07/20 05:40 VBG pH 7.31 (7.30-7.42) 08/04/20 14:51 VBG pCO2 49.3 mmHg (35-63) 08/04/20 14:51 VBG HCO3 24.0 mmol/L (20-32) 08/04/20 14:51 VBG Base Excess -2.6 mmol/L 08/04/20 14:51 Sodium 134.2 mmol/L (137-145) L 08/07/20 05:40 Potassium 4.2 mmol/L (3.6-5.0) D 08/07/20 05:40 Chloride 102 mmol/L (98-107) 08/07/20 05:40 Carbon Dioxide 23 mmol/L (22-30) 08/07/20 05:40 Anion Gap 9 (5-19) 08/07/20 05:40 BUN 20 mg/dL (7-20) 08/07/20 05:40 Creatinine 1.20 mg/dL (0.52-1.25) 08/07/20 05:40 Est GFR ( Amer) > 60 (>60) 08/07/20 05:40 Est GFR (MDRD) Non-Af 51 (>60) L 08/07/20 05:40 Glucose 97 mg/dL (75-110) 08/07/20 05:40 POC Glucose 105 mg/dL (70-110) 08/07/20 08:06 Hemoglobin A1c % 11.0 % (4.7-6.0) H 08/04/20 06:30 Calcium 8.4 mg/dL (8.4-10.2) 08/07/20 05:40 Magnesium 1.7 mg/dL (1.6-2.3) 08/04/20 06:30 Total Bilirubin 0.8 mg/dL (0.2-1.3) 08/07/20 05:40 Direct Bilirubin 0.4 mg/dL (0.0-0.4) 08/07/20 05:40 Neonat Total Bilirubin Not Reportable 08/07/20 05:40 Neonat Direct Bilirubin Not Reportable 08/07/20 05:40 Neonat Indirect Bili Not Reportable 08/07/20 05:40 AST 21 U/L (14-36) 08/07/20 05:40 ALT 7 U/L (<35) 08/07/20 05:40 Alkaline Phosphatase 57 U/L (38-126) 08/07/20 05:40 Creatine Kinase 84 U/L (30-135) 08/04/20 06:30 Troponin I 0.013 ng/mL 08/05/20 06:33 Total Protein 6.8 g/dL (6.3-8.2) 08/07/20 05:40 Albumin 3.2 g/dL (3.5-5.0) L 08/07/20 05:40 Lipase 47.2 U/L (23-300) 08/04/20 14:51 Beta HCG, Quant < 2.39 mIU/mL (0.0-6.15) 08/04/20 06:30 Total Beta HCG NEGATIVE (NEGATIVE) 08/04/20 06:30 Urine Color YELLOW 08/04/20 10:30 Urine Appearance SLIGHTLY-CLOUDY 08/04/20 10:30 Urine pH 8.0 (5.0-9.0) 08/04/20 10:30 Ur Specific [place] 1.021 08/04/20 10:30 Urine Protein >=500 mg/dL (NEGATIVE) H 08/04/20 10:30 Urine Glucose (UA) >=500 mg/dL (NEGATIVE) H 08/04/20 10:30 Urine Ketones 80 mg/dL (NEGATIVE) H 08/04/20 10:30 Urine Blood NEGATIVE (NEGATIVE) 08/04/20 10:30 Urine Nitrite NEGATIVE (NEGATIVE) 08/04/20 10:30 Urine Bilirubin NEGATIVE (NEGATIVE) 08/04/20 10:30 Urine Urobilinogen NEGATIVE mg/dL (<2.0) 08/04/20 10:30 Ur Leukocyte Esterase MODERATE (NEGATIVE) H 08/04/20 10:30 Urine WBC (Auto) 76 /HPF 08/04/20 10:30 Urine RBC (Auto) 5 /HPF 08/04/20 10:30 Urine Bacteria (Auto) TRACE /HPF 08/04/20 10:30 Squamous Epi Cells Auto <1 /HPF 08/04/20 10:30 Urine Mucus (Auto) RARE /LPF 08/04/20 10:30 Urine Ascorbic Acid NEGATIVE (NEGATIVE) 08/04/20 10:30 Urine Opiates Screen UNCONFIRMED POSITIVE 08/04/20 10:30 Urine Methadone Screen NEGATIVE 08/04/20 10:30 Ur Barbiturates Screen NEGATIVE 08/04/20 10:30 Ur Phencyclidine Scrn NEGATIVE 08/04/20 10:30 Ur Amphetamines Screen NEGATIVE 08/04/20 10:30 U Benzodiazepines Scrn NEGATIVE 08/04/20 10:30 Urine Cocaine Screen UNCONFIRMED POSITIVE 08/04/20 10:30 U Marijuana (THC) Screen NEGATIVE 08/04/20 10:30 Serum Alcohol < 10 mg/dL (NONE DETECTED) 08/04/20 06:30 08/04/20 08/04/20 08/05/20 14:51 18:21 00:25 Troponin I 0.017 0.019 0.021 08/05/20 06:33 Troponin I 0.013 Impressions: Chest X-Ray 08/04/20 07:13 IMPRESSION: 1. No acute pulmonary process identified. Abdomen/Pelvis CT 08/04/20 11:54 IMPRESSION: 1. No acute abnormality in the abdomen or pelvis. 2. Small hiatal hernia. Chest X-Ray 08/06/20 00:00 IMPRESSION: NO ACUTE RADIOGRAPHIC FINDING IN THE CHEST. Plan Plan of Treatment: - discharged on reglan and chlorthalidone. Time Spent: Less than 30 Minutes Stroke Is this a Stroke Patient?: No Acute Heart Failure Is this a Heart Failure Patient?: No
== END 2020-08-07 11:58 | disposition home or self-care (01) | DRG 304 ==
LOC: ER 05:35 → EH 13:14 → 3S 15:33
PROVIDERS: ADMIT Internal Medicine; ATTEND Internal Medicine
DX: I16.0 Hypertensive urgency (principal); E11.10 Type 2 diabetes mellitus with ketoacidosis without coma; N39.0 Urinary tract infection, site not specified; N17.9 Acute kidney failure, unspecified; K31.84 Gastroparesis; F14.10 Cocaine abuse, uncomplicated; F17.200 Nicotine dependence, unspecified, uncomplicated; I10 Essential (primary) hypertension; R10.13 Epigastric pain; E11.43 Type 2 diabetes mellitus with diabetic autonomic (poly)neuropathy; Z79.4 Long term (current) use of insulin; Z79.899 Other long term (current) drug therapy; T38.3X6A Underdosing of insulin and oral hypoglycemic [antidiabetic] drugs, initial encounter; Z91.128 Patient's intentional underdosing of medication regimen for other reason
CPT/HCPCS: 36415; 71045; 71046; 74177; 80053; 80307; 81001; 82550; 82803; 82962; 83036; 83690; 83735; 84484; 84702; 85025; 87086; 87088; 87186; 93005; 93010; 96361; 96374; 96375; 96376; 99285; C9113; J0360; J0696; J1650; J1815; J1885; J2060; J2270; J2405; J2765; J3490; J7030; J7120